=== PATIENT | female | born 1975 | race Caucasian/White ===

== ENCOUNTER 2025-02-18 16:36 | Emergency (ER) | payer BC, MEDICAID, SELFPAY ==
[2025-02-18 16:41] VITALS: BP 119/66; PULSE 73; RESP 16; TEMP 36.6; O2SAT 97; BMI 19.9
--- OUTSIDE RECORDS SUMMARY | 2025-02-18 17:16 | XMS_ITS | Patient Health Record ---
Author Organization [facility] Address [address] [place], [place] [address] Care Team Providers Care Neurologist Name Role Phone Alicia Barboza Primary Care Provider Allergies No Known Allergies Reason For Referral No Information Medications Medication SIG (Take, Route, Frequency, Duration) Notes Start Date End Date Status OLANZapine 15 MG Tablet 1 tablet Orally Once a day compass 10/09/2022 Active Mirtazapine 15 MG Tablet 1 tablet at bedtime Orally Once a day compass 10/09/2022 Active Triamcinolone Acetonide 0.1 % Ointment 1 application Externally Twice a day As needed for itching (do not use on face/neck) 10/09/2022 Active LaMICtal 150 MG Tablet 1 tablet Orally t wice a day Not-Taking Lexapro 20 MG Tablet 1 tablet Orally Onc e a day Not-Taking traZODone HCl 50 MG Tablet 1 tablet at bedtime as needed Orally Once a day Compass Active Promethazine HCl 25 MG Tablet 1 tablet as needed Orally every 8 hrs; Duration: 30 days As needed for nausea 10/09/2022 Active Docusate Sodium Acti ve Omeprazole 20 MG Capsule Delayed Release 1 capsule 30 minutes before morning meal Orally Once a day; Duration: 30 days 09/12/2022 Active Ondansetron HCl 4 MG Tablet 1 tablet Orally every 8 hours; Duration: 30 days As needed for nausea 09/12/2022 Active Hydrocodone Bitartrate Not-Taking Cyclobenzaprine HCl Not-Taking NexIUM Not-Taking Social History Tobacco Use: Social History Observation Description Date Details (start date - stop date) Never Smoker NA - NA Sex Assigned At : Social History Observation Description Sex Assigned At Female Social History Drugs/Alcohol: Social Info Question Answer Notes Alcohol Screen (Audit-C) Did you have a drink containing alcohol in the past year? No Points 0 Interpretation Negative Drugs Have you used drugs other than those for medical reasons in the past 12 months? No Tobacco Use: Social Info Question Answer Notes Tobacco Use/Smoking Are you a nonsmoker Problems Problem Type SNOMED Code ICD Code Onset Dates Problem Status W/U Status Risk Notes Problem Generalized anxiety disorder (41812257) Generalized anxiety disorder (F41.1) Active confirmed Problem Chronic pain (87180018) Other chronic pain (G89.29) Active confirmed Problem Vitamin D deficiency (49925045) Vitamin D deficiency (E55.9) Active confirmed Problem Arthritis (8974998) Arthritis (M19.90) Active confirmed Problem Migraine (33060483) Migraine (G43.909) Active confirmed Problem Asthma (667745622) Asthma (J45.909) Active conf irmed Problem Nausea (992536631) Chronic nause a (R11.0) Active confirmed Problem Schizophrenia (01967422) Schizophrenia (F20.9) Active confirmed Problem Movement disorder (55517007) Movement disorder (G25.9) Active confirmed Problem Gastroesophageal reflux disease (688937345) GERD without esophagitis (K21.9) Active confirmed Problem Tobacco use (303415339) Tobacco use disorder (F17.200) Active confirmed Problem Weight decreased (821865660) Weight loss, non-intentional (R63.4) Active confirmed Plan Of Treatment No Information Insurance Providers Payer Name Payer Address Payer Phone Subscriber Number Group Number Insured Name Patient Relationship to Insured Coverage Start Date Coverage End Date Ambetter [address] [place] [phone] [id number] Melissa Nation Self - patient is the insured [employer] [address] [address] [place] [address] [phone] [id number] Deanna montiel Melissa Self - patient is the insured [employer] [address] [place] [address] [id number] Melissa Nation Self - patient is the insured Medical (General) History Medical History History ICD Code Asthma J45.909 Other intervertebral disc degeneration, 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
[2025-02-18 18:23] VITALS: BP 125/53; PULSE 78; O2SAT 98
--- NOTE | 2025-02-18 18:55 | CTR_ITS ---
PROCEDURE INFORMATION: Exam: CT Abdomen And Pelvis With Contrast Exam date and time: 02/18/2025 07:29 PM Age: 49 years old Clinical indication: Abdominal pain; PT arrives via EMS for complaints of back pain. And RT flank pain; Additional info: R flank/rlq pain TECHNIQUE: Imaging protocol: Computed tomography of the abdomen and pelvis with contrast. Radiation optimization: All CT scans at this facility use at least one of these dose optimization techniques: automated exposure control; mA and/or kV adjustment per patient size (includes targeted exams where dose is matched to clinical indication); or iterative reconstruction. Contrast material: [id number]; Contrast volume: 65 ml; Contrast route: INTRAVENOUS (IV); COMPARISON: No relevant prior studies available. RADIATION DOSE METRICS: Total DLP (mGy-cm): 306.64 FINDINGS: Liver: Normal. No mass. Gallbladder and biliary ducts: Central intrahepatic biliary ductal dilatation. Prior cholecystectomy. Pancreas: Normal. No ductal dilation. Spleen: Normal. No splenomegaly. Adrenal glands: Normal. No mass. Kidneys and ureters: Symmetric enhancement of the kidneys and excretion. No hydronephrosis or hydroureter. Stomach and bowel: Anastomotic staple line in the left upper quadrant. Postsurgical changes of the gastroesophageal junction with hiatal hernia. No obstruction. Appendix: No evidence of appendicitis. Intraperitoneal space: No free air. Vasculature: Atherosclerotic vascular disease. Lymph nodes: Unremarkable. No enlarged lymph nodes. Urinary bladder: Partially distended bladder is unremarkable. Reproductive: Unremarkable as visualized. Bones/joints: Unremarkable. No acute fracture. Soft tissues: Unremarkable. CT/CT abdomen pelvis w con* [id number] IMPRESSION: 1. No renal, ureteral or bladder calculi. No hydronephrosis or hydroureter. 2. Nonspecific but nonobstructive bowel-gas pattern with moderate air distension of the ascending and sigmoid colon. 3. Mild intrahepatic biliary ductal dilatation. Status post cholecystectomy. 4. Postsurgical changes of the gastroesophageal junction with hiatal hernia.
[2025-02-18] MEDS: morphine 4 mg/mL SDV 1 mL IVP ×2 (19:04→20:53)
[2025-02-18 19:30] VITALS: BP 124/66; PULSE 80; O2SAT 95
[2025-02-18 19:37] LABS: Hematocrit 38.4 % (36-47); Hemoglobin 12.80 g/dL (11.27-16.99); Mean Corpuscular HGB Conc 33.3 g/dL (30-55); Mean Corpuscular Hemoglobin 33.9 pg (27-33); Mean Corpuscular Volume 101.6 fl (85-98); Nucleated Red Blood Cells % 0 %; Platelet Count 287 10^3/cmm (157-399); Red Blood Count 3.78 10^6/uL (3.85-5.65); White Blood Count 6.75 10^3/uL (3.29-11.43)
[2025-02-18] MEDS: iohexol 350 mg/mL 500 mL Btl (per mL) IV (19:46)
[2025-02-18 20:02] LABS: Alanine Aminotransferase 29 U/L (0-33); Albumin Level 3.9 g/dL (3.5-5.2); Alkaline Phosphatase 63 U/L (35-105); Anion Gap 15.2 (5-19); Aspartate Amino Transferase 24 U/L (0-32); Blood Urea Nitrogen 12 mg/dL (6-20); Calcium 8.4 mg/dL (8.5-10.5); Carbon Dioxide 24 mmol/L (22-29); Chloride 107 mmol/L (98-107); Creatinine Clr Calc Pharmacy 81.1155; Globulin 2.2 g/dL (1.3-4.6); Glucose 88 mg/dL (65-115); Lipase 50 U/L (13-60); Osmolality Calculated 293 mOsm/kg (285-295); Potassium 4.2 mmol/L (3.5-5.1); Sodium 142 mmol/L (136-145); Total Protein 6.1 g/dL (6.6-8.7)
[2025-02-18 20:05] VITALS: PULSE 83; O2SAT 95
[2025-02-18 20:14] LABS: Slide Review Slide Review Perform
[2025-02-18 20:20] LABS: Glucose Urine UA Negative (Normal); Nitrate Urine Negative (Negative)
[2025-02-18 20:25] LABS: Add Urine Microscopic? YES
--- NOTE | 2025-02-18 20:26 | W.ED.BACK ---
HPI - Back Pain/Injury General: Chief Complaint: Back Pain/Injury Stated Complaint: back pain/hypotensive Time Seen by Provider: 02/18/25 17:26 History of Present Illness: 49 yo F arrived by ambulance for severe right low back/right flank pain. EMS report notes pain ongoing for about a week; pt later states onset this afternoon around 1?2 pm, sudden and severe. Pain is constant, worsens with palpation over ?kidney? area, and there is tenderness in the right lower abdomen. Pt denies vomiting. Pt also reports right-sided leg discomfort involving hip, knee, and ankle, with difficulty ranging these joints. Initial report mentioned possible hypotension; EMS BP was 119/86. Pt appears uncomfortable; requests pain relief. Related Data Home Medications ?Medication ?Instructions ?Recorded ?Confirmed escitalopram oxalate 20 mg tablet 20 mg PO DAILY 02/08/25 02/12/25 lamotrigine 50 mg disintegrating 50 mg PO DAILY 02/08/25 02/12/25 tablet loperamide 2 mg capsule 2 mg PO Q6H PRN 02/08/25 02/12/25 quetiapine 50 mg tablet (Seroquel) 50 mg PO DAILY 02/08/25 02/12/25 Previous Rx's ?Medication ?Instructions ?Recorded diphenhydramine HCl 25 mg tablet 25 mg PO .q hs PRN allergy 02/08/25 symptoms #30 tabs loratadine 10 mg tablet 10 mg PO DAILY PRN allergy 02/08/25 symptoms #30 tabs cephalexin 500 mg capsule 500 mg PO BID 5 days #10 caps 02/12/25 ondansetron 4 mg disintegrating 4 mg PO Q8H 5 days #15 tabs 02/18/25 tablet oxycodone-acetaminophen 5 mg-325 1 tab PO Q8H PRN pain #20 tabs 25 mg tablet Allergies Allergy/AdvReac Type Severity Reaction Status Date / Time adhesive tape Allergy rash and Verified 02/12/25 12:14 burning [facility] ED PFSH: Medical History (Updated 02/18/25 @ 20:47 by Jorje Pratt DO) Seasonal allergies Social History Smoking and tobacco/nicotine status: current every day tobacco/nicotine user Physical Exam Const: COMMON NORMALS: no acute distress, patient oriented x3 and alert HENMT: COMMON NORMALS: normocephalic and atraumatic HEAD & SCALP: normocephalic and atraumatic Eye: COMMON NORMALS: Equal, round and reactive pupils present, EOMs intact bilaterally and no scleral icterus PUPIL: Yes Equal, round and reactive pupils present Resp: COMMON NORMALS: normal respiratory effort and No retractions Cardio: COMMON NORMALS: regular rate, regular rhythm and No murmurs present (Cardio) RATE: regular rate RHYTHM: regular rhythm GI: OTHER: Moderate pain with palpation of the right flank region and mild pain with right lower quadrant abdominal palpation. Normal bowel sounds. Neuro: COMMON NORMALS: patient oriented x3 SENSORIUM/ORIENTATION: Yes alert Skin: COMMON NORMALS: no rashes or lesions noted GENERAL SKIN EXAM: no rashes or lesions noted Course Vital Signs: Vital signs: Vital Signs Temperature 97.9 F 02/18/25 16:41 Pulse Rate 78 02/18/25 20:30 Respiratory Rate 16 02/18/25 16:41 Blood Pressure 118/76 02/18/25 20:30 Pulse Oximetry 95 02/18/25 20:30 Oxygen Delivery Me thod Room Air 02/18/25 20:05 MDM - Back Pain/Injury Medical Decision Making 49 yo F presents with sudden severe right flank/low back pain; EMS notes a week of symptoms, pt reports onset earlier today. Pain is constant, with tenderness over right flank and RLQ. No vomiting. Associated difficulty ranging right hip/knee/ankle. Vitals stable: BP 125/53, HR 78, RR 16, afebrile, SpO2 98% RA. PE shows reproducible right flank pain and RLQ tenderness; limited range in right lower extremity joints. Nephrolithiasis discussed as likely given abrupt severe flank pain indifferent to position and possible abdominal radiation. Appendicitis considered given RLQ tenderness. Back spasm mentioned as a possibility. CT scan does not show evidence of ureterolithiasis however does show some bowel distention without overt signs of blockage. She continues to have decreased but present bowel sounds and on reexamination states that she has not had a bowel movement since pain started but has passed a small amount of gas. She has underwent cholecystectomy in the past and I suspect she may have a partial bowel obstruction causing her pain. She has required multiple doses of morphine as well as a single dose of Toradol and pain is still 8 of 10. I spoke with both the hospitalist on-call and general surgeon, both of which feel the patient can be safely discharged home with oral pain and nausea medication given her CT findings and labs. I will prescribe her Zofran and Percocet and she will be discharged in stable condition knowing that she is always welcome back in the emergency department if the intervention is insufficient or if she has worsening symptoms before outpatient follow-up. Labs 02/18/25 19:14 02/18/25 19:14 Radiology Impressions Abdomen/Pelvis CT 02/18/25 18:55 IMPRESSION: 1. No renal, ureteral or bladder calculi. No hydronephrosis or hydroureter. 2. Nonspecific but nonobstructive bowel-gas pattern with moderate air distension of the ascending and sigmoid colon. 3. Mild intrahepatic biliary ductal dilatation. Status post cholecystectomy. 4. Postsurgical changes of the gastroesophageal junction with hiatal hernia. Laboratory Results WBC 6.75 10^3/uL (3.29-11.43) 02/18/25 19:14 RBC 3.78 10^6/uL (3.85-5.65) L 02/18/25 19:14 Hgb 12.80 g/dL (11.27-16.99) 02/18/25 19:14 Hct 38.4 % (36-47) 02/18/25 19:14 MCV 101.6 fl (85-98) H 02/18/25 19:14 MCH 33.9 pg (27-33) H 02/18/25 19:14 MCHC 33.3 g/dL (30-55) 02/18/25 19:14 RDW 12.8 % (12.1-15.1) 02/18/25 19:14 Plt Count 287 10^3/cmm (157-399) 02/18/25 19:14 MPV 9.3 fL (7.4-10.4) 02/18/25 19:14 Neut % (Auto) 41.8 % 02/18/25 19:14 Lymph % (Auto) 41.8 % 02/18/25 19:14 [place] % (Auto) 8.0 % 02/18/25 19:14 Eos % (Auto) 6.8 % 02/18/25 19:14 Baso % (Auto) 1.5 % 02/18/25 19:14 Neut # (Auto) 2.82 10^3/uL (1.8-7.7) 02/18/25 19:14 Lymph # (Auto) 2.8 10^3/uL (0.8-4.8) 02/18/25 19:14 Hamilton # (Auto) 0.5 10^3/uL (0.2-0.9) 02/18/25 19:14 Eos # (Auto) 0.5 10^3/uL (0.0-0.8) 02/18/25 19:14 Baso # (Auto) 0.1 10^3/uL (0.0-0.1) 02/18/25 19:14 Nucleated RBC % (auto) 0 % 02/18/25 19:14 Nucleated RBCs # 0.0 /100WBC 02/18/25 19:14 Sodium 142 mmol/L (136-145) 02/18/25 19:14 Potassium 4.2 mmol/L (3.5-5.1) 02/18/25 19:14 Chloride 107 mmol/L (98-107) 02/18/25 19:14 Carbon Dioxide 24 mmol/L (22-29) 02/18/25 19:14 Anion Gap 15.2 (5-19) 02/18/25 19:14 BUN 12 mg/dL (6-20) 02/18/25 19:14 Creatinine 0.6 mg/dL (0.5-0.9) 02/18/25 19:14 GFR Calculation 105.8 mL/min (90-130) 02/18/25 19:14 Glucose 88 mg/dL (65-115) 02/18/25 19:14 Calculated Osmolality 293 mOsm/kg (285-295) 02/18/25 19:14 Calcium 8.4 mg/dL (8.5-10.5) L 02/18/25 19:14 Total Bilirubin 0.2 mg/dL (0.15-1.2) 02/18/25 19:14 AST 24 U/L (0-32) 02/18/25 19:14 ALT 29 U/L (0-33) 02/18/25 19:14 Alkaline Phosphatase 63 U/L (35-105) 02/18/25 19:14 Total Protein 6.1 g/dL (6.6-8.7) L 02/18/25 19:14 Albumin 3.9 g/dL (3.5-5.2) 02/18/25 19:14 Globulin 2.2 g/dL (1.3-4.6) 02/18/25 19:14 Lipase 50 U/L (13-60) 02/18/25 19:14 Urine Color Yellow (Yellow) 02/18/25 20:02 Urine Appearance Clear (CLEAR) 02/18/25 20: Urine pH 5.5 (5-7) 02/18/25 20:02 Ur Specific [place] 1.056 (1.005-1.030) H 02/18/25 20: Urine Protein Negative (Negative) 02/18/25 20: Urine Glucose (UA) Negative (Normal) 02/18/25 20: Urine Ketones Trace (Negative) 02/18/25 20: Urine Blood Negative (Negative) 02/18/25 20: Urine Nitrate Negative (Negative) 02/18/25 20: Urine Bilirubin Negative (Negative) 02/18/25 20: Urine Urobilinogen 1.0 mg/dL (Negative) 02/18/25 20:02 Ur Leukocyte Esterase Negative (Negative) 02/18/25 20: Urine RBC 3-5 /hpf (0-2) 02/18/25 20:02 Urine WBC 0-5 /hpf (0-5) 02/18/25 20:02 Ur Squamous Epith Cells 0-5 /hpf (0-5) 02/18/25 20: Amorphous Sediment Not Reportable 02/18/25 20: Urine Bacteria None seen /hpf (NONE) 02/18/25 20: Hyaline Casts 0-4 /lpf H 02/18/25 20:02 All radiology interpretation(s) finalized by discharge Discharge Plan Discharge Patient Disposition: Home Clinical Impression: Partial bowel obstruction, Intractable abdominal pain Condition: Stable Prescriptions: New ondansetron 4 mg tablet,disintegrating 4 mg PO Q8H 5 Days Qty: 15 0RF oxycodone-acetaminophen 5-325 mg tablet 1 tab PO Q8H PRN (Reason: pain) Qty: 20 0RF No Action cephalexin 500 mg capsule 500 mg PO BID 5 Days Qty: 10 0RF lamotrigine 50 mg tablet,disintegrating 50 mg PO DAILY loperamide 2 mg capsule 2 mg PO Q6H PRN escitalopram oxalate 20 mg tablet 20 mg PO DAILY quetiapine [Seroquel] 50 mg tablet 50 mg PO DAILY diphenhydramine HCl 25 mg tablet 25 mg PO .q hs PRN (Reason: allergy symptoms) Qty: 30 0RF loratadine 10 mg tablet 10 mg PO DAILY PRN (Reason: allergy symptoms) Qty: 30 0RF Discharge Orders: Discharge ED (Routine); Ordered 02/18/25 Ordered By: Jorje Pratt Referrals: Margoth Koenig DO [Primary Care Provider, [facility]] Discharge Diet: Advance as tolerated Discharge Activity: Increase activity as tolerated Patient Instructions: Ileus (ED), Opioid Safety, Pain Management, Patient Portal & Silviano Instructions Activity Restrictions/Additional Instructions: Please take the prescribed nausea and pain medication and if this is not sufficient you are always welcome back in the emergency department. Both the on-call hospitalist and general surgeon feel it is safe you to go home and take medicine and gently advance your diet. For start with clear fluids and then progress as you can to a full, normal diet Print Language: Cook Islander Coding Level of Care Code ED Diesel Bus Mechanic for Amanda Ruiz
[2025-02-18 20:28] LABS: Specific Gravity, Urine 1.056 (1.005-1.030)
[2025-02-18 20:30] VITALS: BP 118/76; PULSE 78; O2SAT 95
[2025-02-18] MEDS: oxyCODONE-APAP 10-325 mg Tablet 1 TAB PO (21:17)
[2025-02-18 21:19] VITALS: BP 111/70; PULSE 79; O2SAT 96
== END 2025-02-18 21:20 | disposition home or self-care (01) ==
PROVIDERS: Emergency Provider Student in an Organized Health Care Education/Training Program; PCP Family Medicine
DX: K56.600 Partial intestinal obstruction, unspecified as to cause (principal); R10.9 Unspecified abdominal pain; Z72.0 Tobacco use
CPT/HCPCS: 36415; 74177; 80053; 81001; 83690; 85025; 96361; 96374; 96375; 96376; 99285; J1885; J2270; J7030; J9999

== ENCOUNTER 2025-02-19 19:48 | Observation (INO) | payer BC, MEDICAID, SELFPAY ==
--- OUTSIDE RECORDS SUMMARY | 2025-02-19 19:51 | XMS_ITS | Patient Health Record ---
Author Organization [facility] Address [address] [place], [place] [id number] Care Team Providers Care [employer] Name Role Phone Alicia Barboza Primary Care [...] Status Risk Notes Problem Generalized anxiety disorder (58024034) Generalized anxiety disorder (F41.1) Active confirmed Problem Chronic pain (52985209) Other chronic pain (G89.29) Active confirmed Problem Vitamin D deficiency (30621883) Vitamin D deficiency (E55.9) Active confirmed Problem Arthritis (9101525) Arthritis (M19.90) Active confirmed Problem Migraine (11759270) Migraine (G43.909) Active confirmed Problem Asthma (108186777) Asthma (J45.909) Active conf irmed Problem Nausea (504780884) Chronic nause a (R11.0) Active confirmed Problem Schizophrenia (30748442) Schizophrenia (F20.9) Active confirmed Problem Movement disorder (01920502) Movement disorder (G25.9) Active confirmed Problem Gastroesophageal reflux disease (819918701) GERD without esophagitis (K21.9) Active confirmed Problem Tobacco use (684774179) Tobacco use disorder (F17.200) Active confirmed Problem Weight decreased (406844189) Weight loss, non-intentional (R63.4) Active confirmed Plan Of Treatment No Information Insurance Providers Payer Name Payer Address Payer Phone Subscriber Number Group Number Insured Name Patient Relationship to Insured Coverage Start Date Coverage End Date Ambetter [address] [place] [phone] [id number] Melissa Nation Self - patient is the insured [employer] [address] [address] [place] [address] [phone] [id number] Deanna montiel Melissa Self - patient is the insured [employer] [address] [place] [address] [id number] Melissa Nation Self - patient is the [...]
[2025-02-19 19:58] VITALS: BP 88/55; PULSE 61; RESP 18; TEMP 36.8; O2SAT 96
[2025-02-19 20:14] LABS: Hematocrit 38.2 % (36-47); Hemoglobin 12.60 g/dL (11.27-16.99); Mean Corpuscular HGB Conc 33.0 g/dL (30-55); Mean Corpuscular Hemoglobin 33.2 pg (27-33); Mean Corpuscular Volume 100.8 fl (85-98); Nucleated Red Blood Cells % 0 %; Platelet Count 266 10^3/cmm (157-399); Red Blood Count 3.79 10^6/uL (3.85-5.65); White Blood Count 5.08 10^3/uL (3.29-11.43)
--- NOTE | 2025-02-19 20:25 | CTR_ITS ---
PROCEDURE INFORMATION: Exam: CT Abdomen And Pelvis With Contrast Exam date and time: 02/19/2025 9:15 PM Age: 49 years old Clinical indication: Abdominal pain; Generalized; Prior surgery; Surgery date: 6+ months; Surgery type: Gastric bypass. Gb. Bladder sling. Csection. C/O diffuse abd pain. TECHNIQUE: Imaging protocol: Computed tomography of the abdomen and pelvis with contrast. Radiation optimization: All CT scans at this facility use at least one of these dose optimization techniques: automated exposure control; mA and/or kV adjustment per patient size (includes targeted exams where dose is matched to clinical indication); or iterative reconstruction. Contrast material: OMNI 350; Contrast volume: 80 ml; Contrast route: INTRAVENOUS (IV); COMPARISON: CT abdomen pelvis w con* [id number] 02/18/2025 7:29 PM RADIATION DOSE METRICS: Total DLP (mGy-cm): 313.88 FINDINGS: Diaphragm: Small hiatus hernia present. Liver: See Gallbladder and biliary ducts finding. Gallbladder and biliary ducts: Patient status post cholecystectomy. Liver is enlarged measuring 18 cm longitudinally and demonstrates findings that could represent periportal edema correlate the screw inflammatory process confined to liver such as hepatitis or steerable finding Pancreas: Unremarkable. No ductal dilation. Spleen: Unremarkable. No splenomegaly. Adrenal glands: Normal. No mass. Kidneys and ureters: There is a 5 mm cyst upper pole left kidney. Smaller microcysts present right lower pole measures 3 mm. Stomach and bowel: Patient is status post gastric bypass there is mild constipation without obstruction. There are air-fluid levels within nondistended large and small bowel gastroenteritis could be a consideration Appendix: No evidence of appendicitis. Intraperitoneal space: There is no intra-abdominal or pelvic free air present. Small amount of free fluid demonstrated. Vasculature: Unremarkable. No abdominal aortic aneurysm. Lymph nodes: Unremarkable. No enlarged lymph nodes. Urinary bladder: Unremarkable as visualized. Reproductive: Unremarkable as visualized. Bones/joints: Unremarkable. No acute fracture. Soft tissues: Unremarkable. CT/CT abdomen pelvis w con* [id number] IMPRESSION: 1. Findings could represent gastroenteritis no obstruction 2. Mild hepatomegaly with what could represent periportal edema correlate to exclude inflammatory process confined to the liver such as hepatitis questionable finding 3. Post cholecystectomy status. 4. Findings compatible with renal cysts. COMMENTS: Consistent with the [place] [employer]'s Incidental Findings Committee white paper (J Am Zaki Radiol 2018): Any incidental renal lesion less than 1 cm or classified as too small to characterize, or any incidental cystic renal lesion characterized as simple-appearing, is likely benign. No follow-up imaging is recommended for these lesions per consensus recommendations based on imaging criteria.
--- NOTE | 2025-02-19 20:26 | W.ED.ABDPA2 ---
HPI - Abdominal Pain General: Chief Complaint: Abdominal Pain Stated Complaint: ABD PAIN Time Seen by Provider: 02/19/25 20:22 Source: patient and EMS Mode of arrival: EMS Limitations: no limitations History of Present Illness: 49-year-old female who states that she may have abdominal pain, constipation over the last 3 days. She seen her yesterday and diagnosed partial small bowel obstruction. She is continue to have some pain and nausea she denies any vomiting today states she has had some watery diarrhea denies any fevers denies any worse improved factors rates her pain a 9 out of 10 currently. Related Data Home Medications ?Medication ?Instructions ?Recorded ?Confirmed escitalopram oxalate 20 mg tablet 20 mg PO DAILY 02/08/25 02/12/25 lamotrigine 50 mg disintegrating 50 mg PO DAILY 02/08/25 02/12/25 tablet loperamide 2 mg capsule 2 mg PO Q6H PRN 02/08/25 02/12/25 quetiapine 50 mg tablet (Seroquel) 50 mg PO DAILY 02/08/25 02/12/25 Previous Rx's ?Medication ?Instructions ?Recorded diphenhydramine HCl 25 mg tablet 25 mg PO .q hs PRN allergy 02/08/25 symptoms #30 tabs loratadine 10 mg tablet 10 mg PO DAILY PRN allergy 02/08/25 symptoms #30 tabs cephalexin 500 mg capsule 500 mg PO BID 5 days #10 caps 02/12/25 ondansetron 4 mg disintegrating 4 mg PO Q8H 5 days #15 tabs 02/18/25 tablet oxycodone-acetaminophen 5 mg-325 1 tab PO Q8H PRN pain #20 tabs 1016/25 mg tablet Allergies Allergy/AdvReac Type Severity Reaction Status Date / Time adhesive tape Allergy rash and Verified 02/12/25 12:14 burning Review of Systems GI: Reports: abdominal pain PFS ED PFSH: Medical History Seasonal allergies Social History Smoking and tobacco/nicotine status: current every day tobacco/nicotine user Physical Exam Const: COMMON NORMALS: no acute distress, patient oriented x3 and healthy appearing HENMT: COMMON NORMALS: normocephalic and atraumatic HEAD & SCALP: normocephalic and atraumatic Eye: COMMON NORMALS: conjunctivae normal CONJUNCTIVA: Yes conjunctivae normal Neck/C-Spine: COMMON NORMALS: full ROM and supple Chest: COMMONS NORMALS: normal inspection of the chest Resp: COMMON NORMALS: normal respiratory effort, No retractions, No use of accessory muscles and clear to auscultation bilaterally AUSCULTATION: clear to auscultation bilaterally Cardio: COMMON NORMALS: regular rate, regular rhythm and No murmurs present (Cardio) RATE: regular rate RHYTHM: regular rhythm GI: COMMON NORMALS: Normal to inspection, nondistended, normoactive bowel sounds present, Soft to palpation and no masses PALPATION: Yes Soft to palpation OTHER: diffsuse mildtenderness Extremity: COMMON NORMALS: normal to inspection and full ROM Neuro: COMMON NORMALS: patient oriented x3, moves all extremities and no focal motor deficits Psych: COMMON NORMALS: mental status grossly normal, Normal thought process present and cooperative THOUGHT PROCESS: Normal thought process present Skin: COMMON NORMALS: no rashes or lesions noted and no wounds GENERAL SKIN EXAM: no rashes or lesions noted Course Vital Signs: Vital signs: Vital Signs Temperature 98.2 F 02/19/25 19:58 Pulse Rate 68 02/19/25 22:00 Respiratory Rate 16 02/19/25 22:00 Blood Pressure 116/66 02/19/25 23:33 Pulse Oximetry 92 02/19/25 23:33 Oxygen Delivery Me thod Room Air 02/19/25 23:33 MDM - Abdominal Pain Medical Decision Making Patient presents with abdominal pain. Differential includes small bowel obstruction appendicitis diverticulitis. CT showed no findings of the above. She did have an elevated lipase likely Pancreatitis causing her vomiting abdominal pain. She feels much improved after fluids morphine and Zofran. I did go over her lab results and CT with her and will admit her at this time for pain control I spoke to hospitalist and will admit. Medical Records I reviewed the patient's medical records. Lab Data I reviewed the patient's lab results. 02/19/25 20:04 02/19/25 20:04 Labs/Radiology: Radiology Impressions Abdomen/Pelvis CT 02/19/25 20:25 IMPRESSION: 1. Findings could represent gastroenteritis no obstruction 2. Mild hepatomegaly with what could represent periportal edema correlate to exclude inflammatory process confined to the liver such as hepatitis questionable finding 3. Post cholecystectomy status. 4. Findings compatible with renal cysts. COMMENTS: Consistent with the [employer]'s Incidental Findings Committee white paper (J Am Zaki Radiol 2018): Any incidental renal lesion less than 1 cm or classified as too small to characterize, or any incidental cystic renal lesion characterized as simple-appearing, is likely benign. No follow-up imaging is recommended for these lesions per consensus recommendations based on imaging criteria. Laboratory Results WBC 5.08 10^3/uL (3.29-11.43) 02/19/25 20:04 RBC 3.79 10^6/uL (3.85-5.65) L 02/19/25 20:04 Hgb 12.60 g/dL (11.27-16.99) 02/19/25 20:04 Hct 38.2 % (36-47) 02/19/25 20:04 MCV 100.8 fl (85-98) H 02/19/25 20:04 MCH 33.2 pg (27-33) H 02/19/25 20:04 MCHC 33.0 g/dL (30-55) 02/19/25 20:04 RDW 12.8 % (12.1-15.1) 02/19/25 20:04 Plt Count 266 10^3/cmm (157-399) 02/19/25 20:04 MPV 9.5 fL (7.4-10.4) 02/19/25 20:04 Neut % (Auto) 43.6 % 02/19/25 20:04 Lymph % (Auto) 38.8 % 02/19/25 20:04 Schleicher % (Auto) 7.3 % 02/19/25 20:04 Eos % (Auto) 8.7 % 02/19/25 20:04 Baso % (Auto) 1.4 % 02/19/25 20:04 Neut # (Auto) 2.22 10^3/uL (1.8-7.7) 02/19/25 20:04 Lymph # (Auto) 2.0 10^3/uL (0.8-4.8) 02/19/25 20:04 Schleicher # (Auto) 0.4 10^3/uL (0.2-0.9) 02/19/25 20:04 Eos # (Auto) 0.4 10^3/uL (0.0-0.8) 02/19/25 20:04 Baso # (Auto) 0.1 10^3/uL (0.0-0.1) 02/19/25 20:04 Nucleated RBC % (auto) 0 % 02/19/25 20:04 Nucleated RBCs # 0.0 /100WBC 02/19/25 20:04 Sodium 138 mmol/L (136-145) 02/19/25 20:04 Potassium 4.2 mmol/L (3.5-5.1) 02/19/25 20:04 Chloride 104 mmol/L (98-107) 02/19/25 20:04 Carbon Dioxide 27 mmol/L (22-29) 02/19/25 20:04 Anion Gap 11.2 (5-19) 02/19/25 20:04 BUN 8 mg/dL (6-20) 02/19/25 20:04 Creatinine 0.5 mg/dL (0.5-0.9) 02/19/25 20:04 GFR Calculation 130.6 mL/min (90-130) H 02/19/25 20:04 Glucose 89 mg/dL (65-115) 02/19/25 20:04 Calculated Osmolality 284 mOsm/kg (285-295) L 02/19/25 20:04 Lactic Acid 0.4 mmol/L (0.5-2.2) L 02/19/25 20:04 Calcium 8.5 mg/dL (8.5-10.5) 02/19/25 20:04 Phosphorus 4.2 mg/dL (2.5-4.5) 02/19/25 20:04 Magnesium 2.5 mg/dL (1.7-2.3) H 02/19/25 20:04 Total Bilirubin 0.3 mg/dL (0.15-1.2) 02/19/25 20:04 AST 193 U/L (0-32) H 02/19/25 20:04 ALT 276 U/L (0-33) H 02/19/25 20:04 Alkaline Phosphatase 108 U/L (35-105) H 02/19/25 20:04 Total Protein 6.4 g/dL (6.6-8.7) L 02/19/25 20:04 Albumin 4.1 g/dL (3.5-5.2) 02/19/25 20:04 Globulin 2.3 g/dL (1.3-4.6) 02/19/25 20:04 Triglycerides 59 mg/dL (0-150) 02/19/25 20:04 Cholesterol 136 mg/dL (0-200) 02/19/25 20:04 LDL Cholesterol, Calc 60 mg/dL (50-129) 02/19/25 20:04 HDL Cholesterol 64 mg/dL (60-100) 02/19/25 20:04 LDL/HDL Ratio 0.94 RATIO (0.00-3.22) 02/19/25 20:04 Cholesterol/HDL Ratio 2.13 mg/dL (0.0-4.40) 02/19/25 20:04 Lipase 1051 U/L (13-60) H 02/19/25 20:04 All radiology interpretation(s) finalized by discharge Discharge Plan Discharge Patient Disposition: Admitted As Inpatient Admit Provider: Sheng Christina Clinical Impression: Pancreatitis Condition: Stable Coding Level of Care Code ED Photoengraver Apprentice for Amanda Ruiz
[2025-02-19] MEDS: ondansetron 2 mg/ML SDV 2 mL 4 MG IVP (20:29)
[2025-02-19 20:42] VITALS: RESP 16; O2SAT 96
[2025-02-19] MEDS: morphine 4 mg/mL SDV 1 mL IVP (20:42)
[2025-02-19 20:43] VITALS: BP 111/66; PULSE 56; RESP 16; O2SAT 95
[2025-02-19 20:53] LABS: Lactic Sepsis W/Reflex 0.4 mmol/L (0.5-2.2)
[2025-02-19 20:54] LABS: Alanine Aminotransferase 276 U/L (0-33); Albumin Level 4.1 g/dL (3.5-5.2); Alkaline Phosphatase 108 U/L (35-105); Anion Gap 11.2 (5-19); Aspartate Amino Transferase 193 U/L (0-32); Blood Urea Nitrogen 8 mg/dL (6-20); Calcium 8.5 mg/dL (8.5-10.5); Carbon Dioxide 27 mmol/L (22-29); Chloride 104 mmol/L (98-107); Creatinine Clr Calc Pharmacy 96.9536; Globulin 2.3 g/dL (1.3-4.6); Glucose 89 mg/dL (65-115); Osmolality Calculated 284 mOsm/kg (285-295); Potassium 4.2 mmol/L (3.5-5.1); Sodium 138 mmol/L (136-145); Total Protein 6.4 g/dL (6.6-8.7)
[2025-02-19 21:15] LABS: Lipase 1051 U/L (13-60)
[2025-02-19] MEDS: iohexol 350 mg/mL 500 mL Btl (per mL) IV (21:18)
[2025-02-19 22:00] VITALS: BP 117/67; PULSE 68; RESP 16; O2SAT 94
[2025-02-19 22:33] LABS: Cholesterol 136 mg/dL (0-200); HDL Cholesterol 64 mg/dL (60-100); Magnesium 2.5 mg/dL (1.7-2.3); Triglycerides 59 mg/dL (0-150)
[2025-02-19] MEDS: HYDROcodone-acetaminophen 5-325 mg Tablet 1 TAB PO (22:35)
[2025-02-19 23:33] VITALS: BP 116/66; O2SAT 92
[2025-02-20] VITALS (7 sets, daily range): BP systolic 88–112; BP diastolic 43–73; PULSE 57–76; RESP 16–18; TEMP 36.4–36.9; O2SAT 90–97
[2025-02-20] MEDS: pantoprazole 40 mg SDV IVP (00:17)
--- NOTE | 2025-02-20 01:40 | PM.HP ---
Providers/Chief Complaint Admitting Physician: Sheng Christina MD Primary Care Provider: Margoth Koenig DO Chief Complaint: ABD PAIN History of Present Illness as per the previous notes and the patient: Melissa Le is a 49 year old female with PMH of seasonal allergies, and taking mood mood disorder medications but no reported diagnoses in the chart, current active smoker and smokes every day since more than 10 to 20 years half a pack per day trying to quit came with abdominal pain associate with nausea and vomiting able to pass gas from yesterday and CT scan showed partial small bowel obstruction. The patient was sent home after discussion with surgery as she was passing gas with pain medication. The patient pain did not subside she came back with a similar complaints. She also reported having mild fever and some chills. And abdominal pain radiates from her periumbilical region to the back. It feels pressure-like and squeezing pain. She has past medical history of cholecystectomy, history of section. She does not drink alcohol or any other drugs or any herbal medications. No recent new medications or supplement meds. she did not report any lower leg swelling, shortness of breath, chest pain chest pressure orthopnea or PND. Review of Systems General: Reports: 10 or more systems reviewed and unremarkable except in HPI and below Medications/Allergies Home Medications ?Medication ?Instructions ?Recorded ?Confirmed ?Last Taken ?Type diphenhydramine HCl 25 mg tablet 25 mg PO .q hs PRN allergy 02/08/25 02/12/25 Unknown Rx symptoms #30 tabs escitalopram oxalate 20 mg tablet 20 mg PO DAILY 02/08/25 02/12/25 Unknown History lamotrigine 50 mg disintegrating 50 mg PO DAILY 02/08/25 02/12/25 Unknown History tablet loperamide 2 mg capsule 2 mg PO Q6H PRN 02/08/25 02/12/25 Unknown History loratadine 10 mg tablet 10 mg PO DAILY PRN allergy 02/08/25 02/12/25 Unknown Rx symptoms #30 tabs quetiapine 50 mg tablet (Seroquel) 50 mg PO DAILY 02/08/25 02/12/25 Unknown History cephalexin 500 mg capsule 500 mg PO BID 5 days #10 caps 02/12/25 02/12/25 Unknown Rx ondansetron 4 mg disintegrating 4 mg PO Q8H 5 days #15 tabs 02/18/25 Unknown Rx tablet oxycodone-acetaminophen 5 mg-325 1 tab PO Q8H PRN pain #20 tabs 02/18/25 Unknown Rx mg tablet Allergies Allergy/AdvReac Type Severity Reaction Status Date / Time adhesive tape Allergy rash and Verified 02/12/25 12:14 burning PFSH Acute PFSH: Medical History (Updated 02/20/25 @ 01:46 by Sheng Christina MD) Seasonal allergies Social History Smoking and tobacco/nicotine status: current every day tobacco/nicotine user Vitals/I&O/Wt Last Vital Signs Temp 97.5 F L 02/20/25 00:07 Pulse 76 02/20/25 00:07 Resp 16 02/19/25 22:00 BP 88/50 02/20/25 00:55 Pulse Ox 90 02/20/25 00:07 O2 Del Method Nasal Cannula 02/20/25 00:43 Weight last 48 hrs Weight 49.895 kg Weight 45.813 kg Physical Exam Narrative: General: Alert and oriented, lying comfortably without any distress on room air able to complete and full sentences HEENT: Normocephalic, atraumatic, grossly unremarkable exam Cardio: normal rate rhythm, normal S1-S2 without any murmurs, rubs, or gallops and JVD normal Respiratory: normal vascular breathing on auscultation without any wheezes, stridor, rhonchi GI: Abdomen tender and mildly distended with rigidity on deep palpation around the periumbilical region, normoactive bowel sounds present all 4 quadrants, Neuro: intact cranial nerves motor and sensory and cerebellar/coordination function without any focal neurological deficit Behavior: Appropriate and cooperative Extremities: Adequate palpable pulses, no edema or cyanosis observed Skin: grossly unremarkable exam Data 02/19/25 20:04 02/19/25 20:04 A&P Assessment and plan 1. Pancreatitis: - Patient able to take fluids therefore to continue with clear fluids - Patient is fluid responsive to give bolus of fluid and to start 200 mL Ringer lactate - Zofran for nausea and vomiting - Adequate pain control - Monitor electrolytes and correction accordingly - Monitor renal functions - Keep MAP above 65 2. Transaminitis: Patient having transaminitis and CT scan reported fatty liver with mild inflammation. Could be related to acute pancreatitis, however no ductal dilation noted in the CT scan Called [facility] tissue technician on-call for further review and discussion to need any intervention, the bilirubin is not raised therefore reevaluated and is likely related to acute pancreatitis, however if the patient condition changes and further elevation of transaminitis or bilirubin is reported then to rediscuss and for further intervention if needed as per clinical assessment to proceed Monitor liver functions, if rising consider ultrasound of liver/hepatobiliary system Monitor bilirubin 3. Intractable abdominal pain: Patient is able to pass gas, monitor for any abdominal distention Considering partial bowel obstruction in the previous CAT scan, if it is worsening with distention or rigidity to consider surgery input for further management 4. Partial bowel obstruction: As mentioned above 5. Seasonal allergies: Currently stable to monitor PDMP PDMP Reviewed: Not Reviewed Attestations Medical Necessity Statement*: [facility]'s hospital stay will require greater than 2 midnights for acute pancreatitis Time Spent in Patient Care: 16 - 35 minutes (>than 50% of time spent in counselling and/or direct pt care on unit). Other Attestations: Patient condition has been discussed at length with the patient/family, I have independently reviewed the chart labs imaging/diagnostics/EKG. the goals of care and code status with the patient/family/NOK/legal hospital sales representative, and documented accordingly. The patient/family has been informed about the current condition and further plan of care. Agreed with the plan of care and understood without any language barrier. Every effort was made to ensure accuracy of loom fixer helper. Any obvious errors or omissions should be clarified with the author of the document. Coding Level of Care Code 35208 Diagnoses Pancreatitis K85.90 Transaminitis R74.01 Intractable abdominal pain R10.9 Partial bowel obstruction K56.600 Seasonal allergies J30.2
[2025-02-20] MEDS: morphine 4 mg/mL SDV 1 mL 2 MG IVP (03:54)
[2025-02-20 05:03] LABS: Hematocrit 35.9 % (36-47); Hemoglobin 11.70 g/dL (11.27-16.99); Mean Corpuscular HGB Conc 32.6 g/dL (30-55); Mean Corpuscular Hemoglobin 32.9 pg (27-33); Mean Corpuscular Volume 100.8 fl (85-98); Nucleated Red Blood Cells % 0 %; Platelet Count 207 10^3/cmm (157-399); Red Blood Count 3.56 10^6/uL (3.85-5.65); White Blood Count 4.48 10^3/uL (3.29-11.43)
[2025-02-20 05:22] LABS: Alanine Aminotransferase 264 U/L (0-33); Albumin Level 3.6 g/dL (3.5-5.2); Alkaline Phosphatase 94 U/L (35-105); Anion Gap 10.2 (5-19); Aspartate Amino Transferase 189 U/L (0-32); Blood Urea Nitrogen 6 mg/dL (6-20); Calcium 8.0 mg/dL (8.5-10.5); Carbon Dioxide 26 mmol/L (22-29); Chloride 107 mmol/L (98-107); Globulin 1.6 g/dL (1.3-4.6); Glucose 93 mg/dL (65-115); Osmolality Calculated 285 mOsm/kg (285-295); Potassium 4.2 mmol/L (3.5-5.1); Sodium 139 mmol/L (136-145); Total Protein 5.2 g/dL (6.6-8.7)
[2025-02-20 05:24] LABS: Creatinine Clr Calc Pharmacy 125.5291
--- NOTE | 2025-02-20 08:00 | PC.NURSE ---
In room to round on patient. Patient states, What do you do for smoking around here? Explained that it is a smoke free campus and that I could ask the doctor for a Nicotine patch or Gum. Patient states, I am allergic to the patch and I don't' chew gum. Explained to the patient that I did not have anything else I could offer. Patient verbalized understanding.
[2025-02-20] MEDS: HYDROcodone-acetaminophen 5-325 mg Tablet 1 TAB PO (08:49)
--- NOTE | 2025-02-20 09:15 | PC.NURSE ---
Patient ambulated to the desk and asked for regular food and if she could have something for pain. Explained to the patient that I would bring her something in for pain but that they like to give the stomach rest and would not want to increase her diet just yet. Patient verbalized understanding.
--- NOTE | 2025-02-20 09:55 | PC.NURSE ---
In room to round on patient. Patient was noted at this time to be Vaping under a cover while laying in her bed. Reminded that this is a smoke free facility. Patient unwilling to give up her Vape. Patient placed it back in her purse and states, Do you know when I can go home? Updated patient I would call the doctor to see when she will round today. Patient verbalized understanding
--- NOTE | 2025-02-20 10:30 | PC.NURSE ---
Patient gave her Vape to Profile Saw Setup Operator composition professor Leah. Vape was placed in a bag and locked up.
--- NOTE | 2025-02-20 11:00 | PC.NURSE ---
Patient ambulated to the desk and states, When can I go home. I want to smoke and eat? Explained to patient that she need to wait for the doctor and see what she wants to do. Informed patient that I would text the doctor and see when she thought she would be rounding. Patient verbalized understanding.
--- NOTE | 2025-02-20 11:26 | PC.CHAP ---
Pastoral Care Encounter/Spiritual Assessment Type of Contact [] Declined new car inspector visit [] Patient/Family/Request visit [] Outpatient visit [] Follow-up visit [] Physician referral [] Code/Alert [X] Routine visit [] Staff referral [] Actively dying [] Patient sleeping [] Family support [] [] Out of room [] Palliative care [] [] Receiving care in room [] Pre-surgical visit [] Trauma [] Long length of stay [] ICU visit [] Other: Relational/Emotional Strength [X] Patient feels connected with others/family/visitors/staff [X] Distress [] Loneliness/isolation [] Abandonment Spirituality of Patient [X] Person of Phyllis [X] Attends Druze of their Phyllis [X] Believes in Prayer [X] Reads Bible or Congregation materials [] There are Spiritual issues to be addressed Mural Artist Interventions [X] Prayer [X] Active listening [X] Non-anxious presence [] Spiritual/emotional support [] Crisis/trauma care [] Spiritual counseling [] Bereavement support [] Provided bereavement packet [] Provided Bible/devotional materials [] Provided toy/stuffed animal, coloring book to patient or family member [] Provided Communion [] Anointing/Tangent [] Salvation [] Completed spiritual assessment [] Other: Impact on Illness or Injury [] Angry [] Fearful [X] Anxious [] Often cries [] Exhaustion [] Unable to work [] Unable to attend lutheran [] Unable to walk/stand [] Unable to read [] Unable to drive [] Unable to eat/drink [] Unable to sleep [] Unable to be with family [] Patient intubated [] Other: Summary Low Spirits, Asked about Yarsanism Svc Tomorrow if she was Here. Told her didn't then there was one. Asked if Stacy and i would come back to bible study with her Time spent with patient 20. Min
--- NOTE | 2025-02-20 12:00 | PC.NURSE ---
updated patient that the doctor would be here as soon as she can, she is currently in the ICU. Patient verbalized understanding.
--- NOTE | 2025-02-20 12:30 | PC.NURSE ---
Patient ambulated to the desk and stated, I have already called my ride and I want to sign out. Educated the patient that she should rest in her room and wait for the doctor. Informed her that the doctor might discharge her if she feel like she is better. Patient stated, No I am leaving. Patient ambulated back to her room.
--- NOTE | 2025-02-20 12:54 | PC.NURSE ---
Addendum entered by Dalila Smith RN 02/20/25 18:30: Patient is A&Ox3. Respirations even and non-labored on room air. Original Note: In room to remove patient's IV at this time. Asked patient if she would be willing to stay and see the doctor. Patient stated, NO I am ready to eat and smoke. Explained to patient that the pain could get worse, she was at risk for increased infection and possibly . Patient signed the AMA paper. IV removed intact. Patient tolerated well. Patient was given her Vape, 4 cigarette lighters and her cigarette's back. Patient wheel chaired to the door at her request.
--- NOTE | 2025-02-20 17:12 | PM.DCS ---
Discharge Providers Date of Admission: 02/19/25 21:52 Date of Discharge: February 20, 2025 Attending Provider at Admission: Sheng Christina MD Attending Provider at Discharge: Krystyna Gurrola MD Primary Care Provider: Margoth Koenig DO Diagnoses at Discharge Discharge Diagnosis 1. Pancreatitis: 2. Transaminitis: 3. Intractable abdominal pain: 4. Partial bowel obstruction: 5. Seasonal allergies: Reason for Visit Reason for Visit: ABD PAIN Hospital Course Hospital Course as per the previous notes and the patient: Melissa Le is a 49 year old female with PMH of seasonal allergies, and taking mood mood disorder medications but no reported diagnoses in the chart, current active smoker and smokes every day since more than 10 to 20 years half a pack per day trying to quit came with abdominal pain associate with nausea and vomiting able to pass gas from yesterday and CT scan showed partial small bowel obstruction. The patient was sent home after discussion with surgery as she was passing gas with pain medication. The patient pain did not subside she came back with a similar complaints. She also reported having mild fever and some chills. And abdominal pain radiates from her periumbilical region to the back. It feels pressure-like and squeezing pain. She has past medical history of cholecystectomy, history of section. She does not drink alcohol or any other drugs or any herbal medications. No recent new medications or supplement meds. she did not report any lower leg swelling, shortness of breath, chest pain chest pressure orthopnea or PND. Patient was admitted this morning by another colleague and I am patient getting to the medical floor the staff reported that he wanted to go out and smoke. He wanted to go have some drink. And he was also caught in the room smoking cigarettes with oxygen on and the staff nurse turned off the oxygen patient left AGAINST MEDICAL ADVICE that he does not want to stay. Patient left even before they have a chance to call any provider. As I was doing my round on the floor it was then related to me that the patient left AGAINST MEDICAL ADVICE. Physical Exam Narrative: Patient left AGAINST MEDICAL ADVICE Discharge Data Studies Completed and Pending Completed Studies During Hospitalization Category Date Time Status CT abdomen pelvis w con* [id number] Stat Cat Scan 02/19/25 20:25 Completed Radiology Impressions Abdomen/Pelvis CT 02/19/25 20:25 IMPRESSION: 1. Findings could represent gastroenteritis no obstruction 2. Mild hepatomegaly with what could represent periportal edema correlate to exclude inflammatory process confined to the liver such as hepatitis questionable finding 3. Post cholecystectomy status. 4. Findings compatible with renal cysts. COMMENTS: Consistent with the [employer]'s Incidental Findings Committee white paper (J Am Zaki Radiol 2018): Any incidental renal lesion less than 1 cm or classified as too small to characterize, or any incidental cystic renal lesion characterized as simple-appearing, is likely benign. No follow-up imaging is recommended for these lesions per consensus recommendations based on imaging criteria. ADDENDUM: 02/19/25 2341 The pancreas appears unremarkable there are no peripancreatic inflammatory changes present to suggest imaging features of pancreatitis. There is no discrete pancreatic pancreatic lesion present. Laboratory Results WBC 4.48 10^3/uL (3.29-11.43) 02/20/25 04:27 RBC 3.56 10^6/uL (3.85-5.65) L 02/20/25 04:27 Hgb 11.70 g/dL (11.27-16.99) 02/20/25 04:27 Hct 35.9 % (36-47) L 02/20/25 04:27 MCV 100.8 fl (85-98) H 02/20/25 04:27 MCH 32.9 pg (27-33) 02/20/25 04:27 MCHC 32.6 g/dL (30-55) 02/20/25 04:27 RDW 12.4 % (12.1-15.1) 02/20/25 04:27 Plt Count 207 10^3/cmm (157-399) 02/20/25 04:27 MPV 10.2 fL (7.4-10.4) 02/20/25 04:27 Neut % (Auto) 36.4 % 02/20/25 04:27 Lymph % (Auto) 48.4 % 02/20/25 04:27 Wright % (Auto) 6.5 % 02/20/25 04:27 Eos % (Auto) 7.4 % 02/20/25 04:27 Baso % (Auto) 1.1 % 02/20/25 04:27 Neut # (Auto) 1.63 10^3/uL (1.8-7.7) L 02/20/25 04:27 Lymph # (Auto) 2.2 10^3/uL (0.8-4.8) 02/20/25 04:27 Wright # (Auto) 0.3 10^3/uL (0.2-0.9) 02/20/25 04:27 Eos # (Auto) 0.3 10^3/uL (0.0-0.8) 02/20/25 04:27 Baso # (Auto) 0.1 10^3/uL (0.0-0.1) 02/20/25 04:27 Nucleated RBC % (auto) 0 % 02/20/25 04:27 Nucleated RBCs # 0.0 /100WBC 02/20/25 04:27 Sodium 139 mmol/L (136-145) 02/20/25 04:27 Potassium 4.2 mmol/L (3.5-5.1) 02/20/25 04:27 Chloride 107 mmol/L (98-107) 02/20/25 04:27 Carbon Dioxide 26 mmol/L (22-29) 02/20/25 04:27 Anion Gap 10.2 (5-19) 02/20/25 04:27 BUN 6 mg/dL (6-20) 02/20/25 04:27 Creatinine 0.4 mg/dL (0.5-0.9) L 02/20/25 04:27 GFR Calculation 169.0 mL/min (90-130) H 02/20/25 04:27 Glucose 93 mg/dL (65-115) 02/20/25 04:27 Calculated Osmolality 285 mOsm/kg (285-295) 02/20/25 04:27 Lactic Acid 0.4 mmol/L (0.5-2.2) L 02/19/25 20:04 Calcium 8.0 mg/dL (8.5-10.5) L 02/20/25 04:27 Phosphorus 4.2 mg/dL (2.5-4.5) 02/19/25 20:04 Magnesium 2.5 mg/dL (1.7-2.3) H 02/19/25 20:04 Total Bilirubin 0.4 mg/dL (0.15-1.2) 02/20/25 04:27 AST 189 U/L (0-32) H 02/20/25 04:27 ALT 264 U/L (0-33) H 02/20/25 04:27 Alkaline Phosphatase 94 U/L (35-105) 02/20/25 04:27 Total Protein 5.2 g/dL (6.6-8.7) L 02/20/25 04:27 Albumin 3.6 g/dL (3.5-5.2) 02/20/25 04:27 Globulin 1.6 g/dL (1.3-4.6) 02/20/25 04:27 Triglycerides 59 mg/dL (0-150) 02/19/25 20:04 Cholesterol 136 mg/dL (0-200) 02/19/25 20:04 LDL Cholesterol, Calc 60 mg/dL (50-129) 02/19/25 20:04 HDL Cholesterol 64 mg/dL (60-100) 02/19/25 20:04 LDL/HDL Ratio 0.94 RATIO (0.00-3.22) 02/19/25 20:04 Cholesterol/HDL Ratio 2.13 mg/dL (0.0-4.40) 02/19/25 20:04 Lipase 1051 U/L (13-60) H 02/19/25 20:04 Vitals Last Vital Signs Temp 98.4 F 02/20/25 11:23 Pulse 57 L 02/20/25 11:23 Resp 16 02/20/25 11:23 BP 100/65 02/20/25 11:23 Pulse Ox 93 02/20/25 11:23 O2 Del Method Room Air 02/20/25 11:23 O2 Flow Rate 1 02/20/25 07:56 Discharge Plan Discharge Patient Disposition: Left Against Medical Advice Condition: Stable Prescriptions: No Action loperamide 2 mg capsule 2 mg PO Q6H PRN (Reason: Diarrhea) escitalopram oxalate 20 mg tablet 20 mg PO DAILY diphenhydramine HCl 25 mg tablet 25 mg PO .q hs PRN (Reason: allergy symptoms) Qty: 30 0RF loratadine 10 mg tablet 10 mg PO DAILY PRN (Reason: allergy symptoms) Qty: 30 0RF oxycodone-acetaminophen 5-325 mg tablet 1 tab PO Q8H PRN (Reason: pain) Qty: 20 0RF quetiapine 100 mg tablet 100 mg PO BEDTIME lamotrigine 25 mg tablet 50 mg PO QAM ondansetron 4 mg tablet,disintegrating 4 mg PO Q8H Referrals: Margoth Koenig DO [Primary Care Provider, [facility]] Discharge Attestations Time Spent in Discharge Care*: other Quality Metrics Clinical Quality Measures [ No reported AMI, CVA or VTE this stay] Coding Level of Care Code Acute Code for Chg Fwd Diagnoses Pancreatitis K85.90 Transaminitis R74.01 Intractable abdominal pain R10.9 Partial bowel obstruction K56.600 Seasonal allergies J30.2
--- OUTSIDE RECORDS SUMMARY | 2025-02-23 15:47 | XMS_ITS | Patient Health Record ---
Author Organization [facility] Address [address], [place] [address] Care Team Providers Care Incident Response Specialist Name Role Phone Alicia Barboza Primary Care Provider [phone] Allergies No Known Allergies Reason For Referral [...] Status Risk Notes Problem Generalized anxiety disorder (16831906) Generalized anxiety disorder (F41.1) Active confirmed Problem Chronic pain (09520752) Other chronic pain (G89.29) Active confirmed Problem Vitamin D deficiency (37695577) Vitamin D deficiency (E55.9) Active confirmed Problem Arthritis (2293243) Arthritis (M19.90) Active confirmed Problem Migraine (87671911) Migraine (G43.909) Active confirmed Problem Asthma (496922626) Asthma (J45.909) Active conf irmed Problem Nausea (231314217) Chronic nause a (R11.0) Active confirmed Problem Schizophrenia (24720332) Schizophrenia (F20.9) Active confirmed Problem Movement disorder (82681433) Movement disorder (G25.9) Active confirmed Problem Gastroesophageal reflux disease (437336545) GERD without esophagitis (K21.9) Active confirmed Problem Tobacco use (030568597) Tobacco use disorder (F17.200) Active confirmed Problem Weight decreased (382579249) Weight loss, non-intentional (R63.4) Active confirmed Plan Of Treatment No Information Insurance Providers Payer Name Payer Address Payer Phone Subscriber Number Group Number Insured Name Patient Relationship to Insured Coverage Start Date Coverage End Date [employer] [address] [place] [phone] [id number] Melissa Nation Self - patient is the insured [employer] [address] [address] [place] [address] [id number] Deanna montiel Melissa Self - patient is the insured [employer] [address] [place] [address] [id number] Melissa Nation Self - patient is the [...]
== END 2025-02-20 12:45 | disposition left against medical advice (07) ==
LOC: ER 20:33 → MEDSURG 23:38
PROVIDERS: Admitting Provider Student in an Organized Health Care Education/Training Program; Emergency Provider Emergency Medicine; PCP Family Medicine; Visit Provider Internal Medicine
DX: K56.600 Partial intestinal obstruction, unspecified as to cause (principal); K85.90 Acute pancreatitis without necrosis or infection, unspecified; R74.01 Elevation of levels of liver transaminase levels; J30.2 Other seasonal allergic rhinitis; Z79.891 Long term (current) use of opiate analgesic; Z53.29 Procedure and treatment not carried out because of patient's decision for other reasons; F17.210 Nicotine dependence, cigarettes, uncomplicated
CPT/HCPCS: 36415; 74177; 80053; 80061; 83605; 83690; 83735; 84100; 85025; 96372; G0378; J1650; J2270; J2405; J2470; J7030; J7120; J9999

== ENCOUNTER → 2025-02-26 11:11 | Outpatient (BNVA) | payer BC, SELFPAY | PROVIDERS: PCP Family Medicine; Visit Provider Family Medicine | DX: Z20.2 Contact with and (suspected) exposure to infections with a predominantly sexual mode of transmission (principal); Z13.6 Encounter for screening for cardiovascular disorders; R74.01 Elevation of levels of liver transaminase levels; K85.80 Other acute pancreatitis without necrosis or infection | CPT/HCPCS: 80053; 80074; 81513; 83690; 85025; 87481; 87491; 87591; 87661; 87806 ==

== ENCOUNTER 2025-03-01 19:00 | Emergency (ER) | payer BC, MEDICAID, SELFPAY ==
[2025-03-01 19:00] VITALS: BP 105/55; PULSE 78; RESP 16; TEMP 37.1; O2SAT 96; BMI 19.9
--- OUTSIDE RECORDS SUMMARY | 2025-03-01 19:09 | XMS_ITS | Patient Health Record ---
Author Organization [facility] Address [address] [place], [place] [id number] Care Team Providers Care Patient Appointment Coordinator Name Role Phone Alicia Barboza Primary Care Provider [phone] Allergies No Known Allergies Reason For Referral [...] Description Sex Assigned At Female Social History DRUGS/ALCOHOL: Social Info Question Answer Notes Alcohol Screen [...] Status Risk Notes Problem Generalized anxiety disorder (95989786) Generalized anxiety disorder (F41.1) Active confirmed Problem Chronic pain (49395635) Other chronic pain (G89.29) Active confirmed Problem Vitamin D deficiency (31790743) Vitamin D deficiency (E55.9) Active confirmed Problem Arthritis (4537734) Arthritis (M19.90) Active confirmed Problem Migraine (16280643) Migraine (G43.909) Active confirmed Problem Asthma (617328369) Asthma (J45.909) Active conf irmed Problem Nausea (855221908) Chronic nause a (R11.0) Active confirmed Problem Schizophrenia (07389139) Schizophrenia (F20.9) Active confirmed Problem Movement disorder (62854393) Movement disorder (G25.9) Active confirmed Problem Gastroesophageal reflux disease (355637932) GERD without esophagitis (K21.9) Active confirmed Problem Tobacco use (386922737) Tobacco use disorder (F17.200) Active confirmed Problem Weight decreased (154687476) Weight loss, non-intentional (R63.4) Active confirmed Plan Of Treatment No Information Insurance Providers Payer Name Payer Address Payer Phone Subscriber Number Group Number Insured Name Patient Relationship to Insured Coverage Start Date Coverage End Date Ambetter [address] [place] [phone] [id number] Melissa Nation Self - patient is the insured [employer] [address] [address] [place] [address] [id number] Deanna montiel Melissa Self - patient is the insured [employer] [address] [place] [address] [phone] [id number] Melissa Nation Self - patient is the [...]
[2025-03-01 19:22] LABS: Hematocrit 39.7 % (36-47); Hemoglobin 13.00 g/dL (11.27-16.99); Mean Corpuscular HGB Conc 32.7 g/dL (30-55); Mean Corpuscular Hemoglobin 32.8 pg (27-33); Mean Corpuscular Volume 100.3 fl (85-98); Nucleated Red Blood Cells % 0 %; Platelet Count 290 10^3/cmm (157-399); Red Blood Count 3.96 10^6/uL (3.85-5.65); White Blood Count 7.27 10^3/uL (3.29-11.43)
--- NOTE | 2025-03-01 19:22 | ED_ITS ---
HPI - Abdominal Pain 2 General: Chief Complaint: Abdominal Pain Stated Complaint: LLQ pain Time Seen by Provider: 03/01/25 19:01 Source: patient Mode of arrival: ambulatory Limitations: no limitations History of Present Illness: Patient is a 49-year-old female presents to ED today via EMS for complaints of right sided abdominal pain. Patient was admitted here at the hospital on 02/19 due to pancreatitis. Lipase at that time was 1000. She did have elevations to her LFTs as well. Patient subsequently was discharged and followed up with primary care 3 days ago. Labs were ran at that time and her lipase was down to 31 and liver enzymes seem to be back down to normal. Patient does feel like she got better after discharge but now the pain is back . She is not having any urinary symptoms. She feels like most of her pain is throughout the right side of her abdomen. She has not had any vomiting. He reports normal bowel movements and passing gas. Vital signs are stable upon arrival. She also has a complaint of chest congestion-somewhat chronic-does smoke daily. No fevers. No chest pain or difficulty breathing. MD elicited complaint: abdominal pain Pertinent past history: other (pancreatitis) Onset (ago): day(s) Pain Consistency: constant Location: RUQ and RLQ Severity: moderate Radiation: none Migration to: no migration Exacerbating factors: nothing Relieving factors: nothing Associated Symptoms: Denies change in bowel habits, chills, diarrhea, dysuria, fever(s), hematuria, syncope and vomiting Related Data Home Medications ?Medication ?Instructions ?Recorded ?Confirmed loperamide 2 mg capsule 2 mg PO Q6H PRN Diarrhea 10/2802/26/25 Previous Rx's ?Medication ?Instructions ?Recorded diphenhydramine HCl 25 mg tablet 25 mg PO .q hs PRN al lergy 02/08/25 symptoms #30 tabs loratadine 10 mg tablet 10 mg PO DAILY PRN allergy 1 symptoms #30 tabs escitalopram oxalate 20 mg tablet 20 mg PO DAILY #30 t abs 02/26/25 hydroxyzine HCl 50 mg tablet 50 mg PO .q hs #30 tabs 1 lamotrigine 25 mg tablet 50 mg (2 x 25 mg) PO QAM sei zures 02/26/25 #60 tabs ondansetron 4 mg disintegrating 4 mg PO Q8H spasms #20 tabs 02/26/25 tablet oxycodone-acetaminophen 5 mg-325 1 tab PO Q8H PRN pain 3 days #9 02/26/25 mg tablet tabs albuterol sulfate 90 mcg/actuation 2 inh inhalation Q4 H PRN shortness 03/01/25 aerosol inhaler of breath or wheezing #6.7 g simon Allergies Allergy/AdvReac Type Severity Reaction Status Date / Time adhesive tape Allergy rash and Verified 02/26/25 10:16 burning cetirizine (From [facility]) Allergy Unknown Verified 03/01/25 19:07 Review of Systems 2 Const: Denies: fever(s), chills, body aches, fatigue or malaise Card: Denies: chest pain, palpitations, irregular heart rhythm, edema, swelling of feet/ankles, lightheadedness, syncope or pre-syncope Resp: Reports: productive cough and chest congestion; Denies: dyspnea GI: Reports: abdominal pain; Denies: vomiting, diarrhea or change in bowel habits : Denies: flank pain, difficulty voiding, dysuria, hematuria, genital pruritis, vaginal odor, vaginal bleeding, vaginal discharge or pelvic pain Musc: Denies: neck pain, back pain, extremity pain, extremity swelling, joint pain or joint swelling Skin/Breast: Denies: rash Neuro: Denies: headache(s), numbness in extremities, weakness in extremities, sensory changes or dizziness PFSH ED 2 PFSH: Medical History Lumbar degenerative disc disease LUIS EDUARDO (generalized anxiety disorder) Moderate episode of recurrent major depressive disorder Seasonal allergies Surgical History History of laparotomy History of bladder surgery History of Eleuterio-en-Y gastric bypass History of classical section History of cholecystectomy Social History Smoking and tobacco/nicotine status: current every day tobacco/nicotine user Alcohol intake: never Substance/Drug Use: never Physical Exam 2 Const: COMMON NORMALS: no acute distress, average body habitus, patient oriented x3, no limitations, healthy appearing, alert and well nourished G ENERAL APPEARANCE: cooperative ORIENTATION/CONSCIOUSNESS: Yes awake, Yes oriented to person, Yes oriented to place and Yes oriented to time HENMT: COMMON NORMALS: normocephalic and atraumatic HEAD & SCALP: n ormocephalic and atraumatic Neck/C-Spine: COMMON NORMALS: full ROM, no lymphadenopathy, supple and no meningeal signs Chest: COMMONS NORMALS: normal inspection of the chest Resp: COMMON NORMALS: normal respiratory effort AUSCULTATION: rhonchi (somewhat improved with coughing-chronic smoker) Cardio: COMMON NORMALS: regular rate and regular rhythm RATE: regular rate RHYTHM: regular rhythm GI: COMMON NORMALS: Normal to inspection, nondistended, normoactive bowel sounds present, Soft to palpation, No hepatosplenomegaly present and no masses INSPECTION: Yes normal to inspection AUSCULTATION: Yes normoactive bowel sounds PALPATION: Yes Soft to palpation, Yes Tenderness to palpation present (GI) (throughout R side of abdomen-non surgical examination), No Guarding due to palpation present (GI), No Rigid due to palpation and Yes No hepatosplenomegaly present : COMMON NORMALS: Yes no CVA tenderness BLADDER/KIDNEY EXAM: Yes no CVA tenderness Back/Pelvis: COMMON NORMALS: no CVA tenderness and thoracic and lumbar spine normal to inspection Extremity: COMMON NORMALS: normal to inspection, no clubbing, cyanosis or edema, no calf tenderness and no pedal edema GENERAL: Yes normal exam except as noted Neuro: ROSENDO COMA SCALE: document GCS findings Rosendo coma scale eye opening: Spontaneous Webster coma scale verbal response: Orientated Rosendo coma scale motor response: Obey commands Rosendo coma scale total score: 15 COMMON NORMALS: patient oriented x3, moves all extremities, no focal motor deficits and no sensory deficits noted SENSORIUM/ORIENTATION: Yes alert, Yes oriented to person, Yes oriented to place and Yes oriented to time MENINGEAL SIGNS: Yes no meningeal signs Skin: COMMON NORMALS: no rashes or lesions noted GENERAL SKIN EXAM: no rashes or lesions noted Course 2 Vital Signs: Vital signs: Vital Signs Temperature 98.7 F 03/01/25 19:00 Pulse Rate 81 03/01/25 21:08 Respiratory Rate 16 03/01/25 21:08 Blood Pressure 105/51 03/01/25 21:08 Pulse Oximetry 96 03/01/25 21:08 Oxygen Delivery Me thod Room Air 03/01/25 20:43 MDM - Abdominal Pain Medical Decision Making Patient is a 49-year-old female here for abdominal pain. Patient was recently hospitalized for diagnosis of pancreatitis. She has followed up with primary care and it looks like labs had normalized at that visit. Her blood work here overall is nonactionable. Hemoglobin is stable. Chemistry showing normal liver enzymes. Normal lipase. Abdomen is nonsurgical. Patient underwent CT imaging on 02/19 and 02/20. I am not CT in her today due to risk of repeated radiation in the setting of a benign physical examination and nonconcerning labs. Somewhat of a concern for drug-seeking behavior as she has asked for pain medication multiple times throughout her visit. Her blood pressure does chronically run soft so she was not given repeated doses of medications that can further lower this. Remainder of her emergency workup was benign. CXR ordered based on her complaint of chest congestion. I feel this is probably related to her smoking. She did request albuterol inhaler so this was to be sent to her pharmacy on file. Patient will be discharged with recommendations to follow-up with her primary care provider. Return ED precautions discussed. Differential Diagnosis Likely abdominal pain, calculus of kidney, constipation, diverticulitis, pancreatitis and small bowel obstruction Medical Records I reviewed the patient's medical records. Lab Data I reviewed the patient's lab results. 03/01/25 19:13 03/01/25 19:13 Labs/Radiology: Radiology Impressions Chest X-Ray 03/01/25 19:27 IMPRESSION: No acute findings. Laboratory Results WBC 7.27 10^3/uL (3.29-11.43) 03/01/25 19:13 RBC 3.96 10^6/uL (3.85-5.65) 03/01/25 19:13 Hgb 13.00 g/dL (11.27-16.99) 03/01/25 19:13 Hct 39.7 % (36-47) 03/01/25 19:13 MCV 100.3 fl (85-98) H 03/01/25 19:13 MCH 32.8 pg (27-33) 03/01/25 19:13 MCHC 32.7 g/dL (30-55) 03/01/25 19:13 RDW 11.9 % (12.1-15.1) L 03/01/25 19:13 Plt Count 290 10^3/cmm (157-399) 03/01/25 19:13 MPV 9.6 fL (7.4-10.4) 03/01/25 19:13 Neut % (Auto) 38.0 % 03/01/25 19:13 Lymph % (Auto) 40.9 % 03/01/25 19:13 Addison % (Auto) 8.8 % 03/01/25 19:13 Eos % (Auto) 10.5 % 03/01/25 19:13 Baso % (Auto) 1.8 % 03/01/25 19:13 Neut # (Auto) 2.77 10^3/uL (1.8-7.7) 03/01/25 19:13 Lymph # (Auto) 3.0 10^3/uL (0.8-4.8) 03/01/25 19:13 Addison # (Auto) 0.6 10^3/uL (0.2-0.9) 03/01/25 19:13 Eos # (Auto) 0.8 10^3/uL (0.0-0.8) 03/01/25 19:13 Baso # (Auto) 0.1 10^3/uL (0.0-0.1) 03/01/25 19:13 Nucleated RBC % (auto) 0 % 03/01/25 19:13 Nucleated RBCs # 0.0 /100WBC 03/01/25 19:13 Sodium 138 mmol/L (136-145) 03/01/25 19:13 Potassium 4.6 mmol/L (3.5-5.1) 03/01/25 19:13 Chloride 104 mmol/L (98-107) 03/01/25 19:13 Carbon Dioxide 26 mmol/L (22-29) 03/01/25 19:13 Anion Gap 12.6 (5-19) 03/01/25 19:13 BUN 11 mg/dL (6-20) 03/01/25 19:13 Creatinine 0.8 mg/dL (0.5-0.9) 03/01/25 19:13 GFR Calculation 75.9 mL/min (90-130) L 03/01/25 19:13 Glucose 80 mg/dL (65-115) 03/01/25 19:13 Calculated Osmolality 284 mOsm/kg (285-295) L 03/01/25 19:13 Calcium 8.6 mg/dL (8.5-10.5) 03/01/25 19:13 Total Bilirubin 0.2 mg/dL (0.15-1.2) 03/01/25 19:13 AST 28 U/L (0-32) 03/01/25 19:13 ALT 42 U/L (0-33) H 03/01/25 19:13 Alkaline Phosphatase 95 U/L (35-105) 03/01/25 19:13 Total Protein 6.3 g/dL (6.6-8.7) L 03/01/25 19:13 Albumin 4.1 g/dL (3.5-5.2) 03/01/25 19:13 Globulin 2.2 g/dL (1.3-4.6) 03/01/25 19:13 Lipase 36 U/L (13-60) 03/01/25 19:13 Urine Color Yellow (Yellow) 03/01/25 20:21 Urine Appearance Clear (CLEAR) 03/01/25 20:21 Urine pH 7.5 (5-7) 03/01/25 20:21 Ur Specific Henderson 1.022 (1.005-1.030) 03/01/25 20:21 Urine Protein Negative (Negative) 03/01/25 20:21 Urine Glucose (UA) Negative (Normal) 03/01/25 20:21 Urine Ketones Negative (Negative) 03/01/25 20:21 Urine Blood Negative (Negative) 03/01/25 20:21 Urine Nitrate Negative (Negative) 03/01/25 20:21 Urine Bilirubin Negative (Negative) 03/01/25 20:21 Urine Urobilinogen 1.0 mg/dL (Negative) 03/01/25 20:21 Ur Leukocyte Esterase Trace (Negative) A 03/01/25 20:21 Urine RBC 0-2 /hpf (0-2) 03/01/25 20:21 Urine WBC 0-5 /hpf (0-5) 03/01/25 20:21 Ur Squamous Epith Cells 0-5 /hpf (0-5) 03/01/25 20:21 Amorphous Sediment Not Reportable 03/01/25 20:21 Urine Bacteria None seen /hpf (NONE) 03/01/25 20:21 Hyaline Casts 0-4 /lpf H 03/01/25 20:21 All radiology interpretation(s) finalized by discharge Discharge Plan Discharge Patient Disposition: Home Clinical Impression: Chest congestion Abdominal pain Qualifiers: Abdominal location: generalized Qualified Code(s): R10.84 - Generalized abdominal pain Condition: Stable Prescriptions: New albuterol sulfate 90 mcg/actuation HFA aerosol inhaler 2 inh INHALATION Q4H PRN (Reason: shortness of breath or wheezing) Qty: 6.7 0RF No Action loperamide 2 mg capsule 2 mg PO Q6H PRN (Reason: Diarrhea) diphenhydramine HCl 25 mg tablet 25 mg PO .q hs PRN (Reason: allergy symptoms) Qty: 30 0RF loratadine 10 mg tablet 10 mg PO DAILY PRN (Reason: allergy symptoms) Qty: 30 0RF escitalopram oxalate 20 mg tablet 20 mg PO DAILY Qty: 30 0RF lamotrigine 25 mg tablet 50 mg PO QAM Qty: 60 0RF hydroxyzine HCl 50 mg tablet 50 mg PO .q hs Qty: 30 0RF ondansetron 4 mg tablet,disintegrating 4 mg PO Q8H Qty: 20 0RF oxycodone-acetaminophen 5-325 mg tablet 1 tab PO Q8H PRN (Reason: pain) 3 Days Qty: 9 0RF Discharge Orders: Discharge ED (Routine); Ordered 03/01/25 Ordered By: Daniella Basilio Referrals: Margoth Koenig DO [Primary Care Provider, [facility]] Patient Instructions: Abdominal Pain (ED), Patient Portal & Silviano Instructions Activity Restrictions/Additional Instructions: As we discussed, please follow-up with primary care later this week/next week for reevaluation. Blood work here was unremarkable. You may return to the emergency department at anytime for any further concerns you may have. Print Language: Pashto Coding Level of Care Code ED Data Network Architect for Amanda Ruiz
--- NOTE | 2025-03-01 19:27 | XRR_ITS ---
PROCEDURE INFORMATION: Exam: XR Chest Exam date and time: 03/01/2025 8:09 PM Age: 49 years old Clinical indication: Cough; Additional info: Chest congestion TECHNIQUE: Imaging protocol: Radiologic exam of the chest. Views: 1 view. COMPARISON: CT abdomen pelvis w con* [id number] 02/19/2025 9:15 PM FINDINGS: Lungs: Unremarkable. No consolidation. Probable hyperinflation, can not exclude emphysema. Pleural spaces: Unremarkable. No pleural effusion. No pneumothorax. Heart/Mediastinum: Unremarkable. No cardiomegaly. Bones/joints: Unremarkable. Organs: Cholecystectomy clips. XR/XR chest 1V portable [id number] IMPRESSION: No acute findings.
[2025-03-01 19:42] VITALS: BP 123/51; O2SAT 96
[2025-03-01 19:54] LABS: Alanine Aminotransferase 42 U/L (0-33); Albumin Level 4.1 g/dL (3.5-5.2); Alkaline Phosphatase 95 U/L (35-105); Anion Gap 12.6 (5-19); Aspartate Amino Transferase 28 U/L (0-32); Blood Urea Nitrogen 11 mg/dL (6-20); Calcium 8.6 mg/dL (8.5-10.5); Carbon Dioxide 26 mmol/L (22-29); Chloride 104 mmol/L (98-107); Creatinine Clr Calc Pharmacy 60.8366; Globulin 2.2 g/dL (1.3-4.6); Glucose 80 mg/dL (65-115); Lipase 36 U/L (13-60); Osmolality Calculated 284 mOsm/kg (285-295); Potassium 4.6 mmol/L (3.5-5.1); Sodium 138 mmol/L (136-145); Total Protein 6.3 g/dL (6.6-8.7)
[2025-03-01 20:03] VITALS: RESP 16; O2SAT 95
[2025-03-01] MEDS: morphine 4 mg/mL SDV 1 mL IVP (20:03)
[2025-03-01] MEDS: ondansetron 2 mg/ML SDV 2 mL 4 MG IVP (20:04)
[2025-03-01 20:06] VITALS: BP 111/63
[2025-03-01 20:28] LABS: Glucose Urine UA Negative (Normal); Nitrate Urine Negative (Negative); Specific Gravity, Urine 1.022 (1.005-1.030)
[2025-03-01 20:32] LABS: Add Urine Microscopic? YES
[2025-03-01 20:43] VITALS: BP 101/57; O2SAT 96
[2025-03-01 21:08] VITALS: BP 105/51; PULSE 81; RESP 16; O2SAT 96
== END 2025-03-01 21:08 | disposition home or self-care (01) ==
PROVIDERS: Emergency Provider Physician Assistant; PCP Family Medicine
DX: R09.89 Other specified symptoms and signs involving the circulatory and respiratory systems (principal); R10.84 Generalized abdominal pain; Z72.0 Tobacco use
CPT/HCPCS: 36415; 71045; 80053; 81001; 83690; 85025; 96374; 96375; 99284; J1885; J2270; J2405

== ENCOUNTER 2025-03-16 10:01 | Outpatient (CLI) | payer BC, MEDICAID, SELFPAY ==
--- NOTE | 2025-03-16 10:08 | XR_ITS ---
WS: [id number] Exam: XR lumbar spine 2-3V* [id number] Date/Time of Exam: 03/16/2025 10:11 AM Reason For Exam: low back pain with sciatica DLP: No fracture or malalignment. Disc spaces are preserved. Posterior elements are intact. Slight spondylosis of L4. XR/XR lumbar spine 2-3V* [id number] IMPRESSION: 1. Negative lumbar spine study.
== END 2025-03-16 10:02 | disposition home or self-care (01) ==
LOC: RAD 10:02
PROVIDERS: PCP Family Medicine; Visit Provider Family Medicine
DX: M54.41 Lumbago with sciatica, right side (principal)
CPT/HCPCS: 72100

== ENCOUNTER 2025-03-19 15:06 | Emergency (ER) | payer BC, MEDICAID, SELFPAY ==
[2025-03-19 14:52] VITALS: BP 107/62; PULSE 78; RESP 17; TEMP 36.8; O2SAT 96; BMI 19.9
--- NOTE | 2025-03-19 15:11 | CTR_ITS ---
PROCEDURE INFORMATION: Exam: CT Lumbar Spine Without Contrast Exam date and time: 03/19/2025 3:37 PM Age: 49 years old Clinical indication: Injury or trauma; Fall; Blunt trauma (contusions or hematomas) TECHNIQUE: Imaging protocol: Computed tomography of the lumbar spine without contrast. Sagittal and coronal reformatted images were also reviewed. Radiation optimization: All CT scans at this facility use at least one of these dose optimization techniques: automated exposure control; mA and/or kV adjustment per patient size (includes targeted exams where dose is matched to clinical indication); or iterative reconstruction. COMPARISON: CR XR lumbar spine 2-3V* [id number] 03/16/2025 10:17 AM RADIATION DOSE METRICS: Total DLP (mGy-cm): 269.27 FINDINGS: Bones/joints: Vertebral body height is maintained. No subluxation. Normal bone mineralization. Mild degenerative changes in the visualized spine. Mild degenerative changes at the right and left sacroiliac joints. No acute fracture. Gallbladder and biliary ducts: Patient has had a previous cholecystectomy. Intraperitoneal space: Surgical sutures in the left upper quadrant of the abdomen. Vasculature: Mild atherosclerotic changes in the visualized arteries. No evidence for aortic aneurysm. Soft tissues: No paravertebral soft tissue abnormality or soft tissue emphysema. No radiopaque foreign body. CT/CT lumbar spine wo con* [id number] IMPRESSION: 1. No acute fracture of the lumbar spine. 2. Incidental/nonacute findings are listed in the report.
--- NOTE | 2025-03-19 15:12 | CTR_ITS ---
PROCEDURE INFORMATION: Exam: CT Head Without Contrast Exam date and time: 03/19/2025 3:34 PM Age: 49 years old Clinical indication: Injury or trauma; Fall; Blunt trauma (contusions or hematomas); Additional info: Closed head injury trauma TECHNIQUE: Imaging protocol: Computed tomography of the head without contrast. Radiation optimization: All CT scans at this facility use at least one of these dose optimization techniques: automated exposure control; mA and/or kV adjustment per patient size (includes targeted exams where dose is matched to clinical indication); or iterative reconstruction. COMPARISON: No relevant prior studies available. RADIATION DOSE METRICS: Total DLP (mGy-cm): 946.28 FINDINGS: Brain: No midline shift. Ventricles, cisterns, and sulci are normal. No mass, acute infarct, hemorrhage, or extraaxial fluid collection. Cerebral ventricles: No ventriculomegaly. Paranasal sinuses: Visualized sinuses are unremarkable. No fluid levels. Mastoid air cells: Visualized mastoid air cells are well aerated. Bones: Unremarkable. No acute fracture. Soft tissues: Unremarkable. CT/CT head wo con* [id number] IMPRESSION: No acute intracranial abnormality.
--- NOTE | 2025-03-19 15:12 | ED_ITS ---
HPI - Seizure 2 General: Chief Complaint: Seizure Stated Complaint: seizures- fall History of Present Illness: HPI Narrative: 49-year-old female presents emergency ro om she has a known history of seizure disorders currently is on Lamictal no recent medication changes or dosage change she had a breakthrough seizure today while she was on a walk she fell at hit her head unknown length of downtime no vomiting since also complaining of low back pain. She denies any injuries to her extremities no shortness of breath no recent fever sweats chills or illness no recent medication changes. Associated symptoms: Deny chest pain, chills or fever(s) Related Data Home Medications ?Medication ?Instructions ?Recorded ?Confirmed loperamide 2 mg capsule 2 mg PO Q6H PRN Diarrhea 10/2803/09/25 Previous Rx's ?Medication ?Instructions ?Recorded diphenhydramine HCl 25 mg tablet 25 mg PO .q hs PRN al lergy 02/08/25 symptoms #30 tabs loratadine 10 mg tablet 10 mg PO DAILY PRN allergy 1 symptoms #30 tabs escitalopram oxalate 20 mg tablet 20 mg PO DAILY #30 t abs 02/26/25 hydroxyzine HCl 50 mg tablet 50 mg PO .q hs #30 tabs 1 lamotrigine 25 mg tablet 50 mg (2 x 25 mg) PO QAM sei zures 02/26/25 #60 tabs ondansetron 4 mg disintegrating 4 mg PO Q8H spasms #20 tabs 02/26/25 tablet albuterol sulfate 90 mcg/actuation 2 inh inhalation Q4 H PRN shortness 03/01/25 aerosol inhaler of breath or wheezing #6.7 g simon cyanocobalamin (vitamin B-12) 1,000 mcg IM DAILY 1 wee k #10 mL 03/09/25 1,000 mcg/mL injection solution metronidazole 500 mg tablet 500 mg PO BID 7 days #14 t abs 03/09/25 prednisone 20 mg tablet 40 mg (2 x 20 mg) PO .am #10 tabs 03/09/25 Allergies Allergy/AdvReac Type Severity Reaction Status Date / Time adhesive tape Allergy rash and Verified 03/09/25 14:01 burning cetirizine (From Zyrtec) Allergy Unknown Verified 03/09/25 14:01 Review of Systems 2 Const: Denies: fever(s) or chills Card: Denies: chest pain Resp: Denies: dyspnea GI: Denies: abdominal pain : Denies: dysuria, urinary frequency or urinary urgency Musc: Reports: back pain (Lumbar); Denies: neck pain Skin/Breast: Denies: rash PFSH ED 2 PFSH: Medical History Psychiatric care Functional neurological symptom disorder with attacks or seizures Lumbar degenerative disc disease LUIS EDUARDO (generalized anxiety disorder) Moderate episode of recurrent major depressive disorder Seasonal allergies Surgical History History of laparotomy History of bladder surgery History of Eleuterio-en-Y gastric bypass History of classical section History of cholecystectomy Social History Smoking and tobacco/nicotine status: current every day tobacco/nicotine user Alcohol intake: never Substance/Drug Use: never Physical Exam 2 Const: GENERAL APPEARANCE: cooperative ORIENTATION/CONSCIOUSNESS: Yes awake, Yes oriented to person, Yes oriented to place and Yes oriented to time HENMT: COMMON NORMALS: normocephalic, atraumatic and hearing grossly normal bilaterally HEAD & SCALP: normocephalic and atraumatic Resp: COMMON NORMALS: normal respiratory effort, No retractions, No use of accessory muscles and clear to auscultation bilaterally AUSCULTATION: clear to auscultation bilaterally Cardio: COMMON NORMALS: regular rate, regular rhythm and No murmurs present (Cardio) RATE: regular rate RHYTHM: regular rhythm GI: COMMON NORMALS: Soft to palpation and No hepatosplenomegaly present A USCULTATION: Yes normoactive bowel sounds PALPATION: Yes Soft to palpation, No Tenderness to palpation present (GI), No Guarding due to palpation present (GI) and Yes No hepatosplenomegaly present Extremity: COMMON NORMALS: normal to inspection, capillary refill normal, no clubbing, cyanosis or edema, no calf tenderness and no pedal edema Neuro: SENSORIUM/ORIENTATION: Yes oriented to person, Yes oriented to place and Yes oriented to time Skin: COMMON NORMALS: no rashes or lesions noted GENERAL SKIN EXAM: no rashes or lesions noted Course 2 Vital Signs: Vital signs: Vital Signs Temperature 98.2 F 03/19/25 14:52 Pulse Rate 79 03/19/25 16:39 Respiratory Rate 17 03/19/25 14:52 Blood Pressure 108/65 03/19/25 16:39 Pulse Oximetry 97 03/19/25 16:39 Oxygen Delivery Me thod Room Air 03/19/25 14:52 MDM - Seizure MDM Narrative Medical decision making narrative: CT head lumbar spine negative. Patient is feeling better. Recommend she follow-up with her primary care doctor reports a breakthrough seizure. Return for further problems. Lab Data 03/19/25 15:22 03/19/25 15:22 Labs: Radiology Impressions Lumbar Spine CT 03/19/25 15:11 IMPRESSION: 1. No acute fracture of the lumbar spine. 2. Incidental/nonacute findings are listed in the report. Head CT 03/19/25 15:12 IMPRESSION: No acute intracranial abnormality. Laboratory Results WBC 7.53 10^3/uL (3.29-11.43) 03/19/25 15:22 RBC 3.78 10^6/uL (3.85-5.65) L 03/19/25 15:22 Hgb 12.50 g/dL (11.27-16.99) 03/19/25 15:22 Hct 37.7 % (36-47) 03/19/25 15:22 MCV 99.7 fl (85-98) H 03/19/25 15:22 MCH 33.1 pg (27-33) H 03/19/25 15:22 MCHC 33.2 g/dL (30-55) 03/19/25 15:22 RDW 12.1 % (12.1-15.1) 03/19/25 15:22 Plt Count 277 10^3/cmm (157-399) 03/19/25 15:22 MPV 8.9 fL (7.4-10.4) 03/19/25 15:22 Neut % (Auto) 44.6 % 03/19/25 15:22 Lymph % (Auto) 35.7 % 03/19/25 15:22 [place] % (Auto) 8.4 % 03/19/25 15:22 Eos % (Auto) 9.8 % 03/19/25 15:22 Baso % (Auto) 1.2 % 03/19/25 15:22 Neut # (Auto) 3.36 10^3/uL (1.8-7.7) 03/19/25 15:22 Lymph # (Auto) 2.7 10^3/uL (0.8-4.8) 03/19/25 15:22 [place] # (Auto) 0.6 10^3/uL (0.2-0.9) 03/19/25 15:22 Eos # (Auto) 0.7 10^3/uL (0.0-0.8) 03/19/25 15:22 Baso # (Auto) 0.1 10^3/uL (0.0-0.1) 03/19/25 15:22 Nucleated RBC % (auto) 0 % 03/19/25 15:22 Nucleated RBCs # 0.0 /100WBC 03/19/25 15:22 Sodium 139 mmol/L (136-145) 03/19/25 15:22 Potassium 4.1 mmol/L (3.5-5.1) 03/19/25 15:22 Chloride 107 mmol/L (98-107) 03/19/25 15:22 Carbon Dioxide 23 mmol/L (22-29) 03/19/25 15:22 Anion Gap 13.1 (5-19) 03/19/25 15:22 BUN 16 mg/dL (6-20) 03/19/25 15:22 Creatinine 0.6 mg/dL (0.5-0.9) 03/19/25 15:22 GFR Calculation 105.8 mL/min (90-130) 03/19/25 15:22 Glucose 96 mg/dL (65-115) 03/19/25 15:22 Calculated Osmolality 289 mOsm/kg (285-295) 03/19/25 15:22 Calcium 8.5 mg/dL (8.5-10.5) 03/19/25 15:22 Magnesium 2.2 mg/dL (1.7-2.3) 03/19/25 15:22 Total Bilirubin 0.2 mg/dL (0.15-1.2) 03/19/25 15:22 AST 24 U/L (0-32) 03/19/25 15:22 ALT 29 U/L (0-33) 03/19/25 15:22 Alkaline Phosphatase 65 U/L (35-105) 03/19/25 15:22 Total Protein 5.8 g/dL (6.6-8.7) L 03/19/25 15:22 Albumin 4.1 g/dL (3.5-5.2) 03/19/25 15:22 Globulin 1.7 g/dL (1.3-4.6) 03/19/25 15:22 All radiology interpretation(s) finalized by discharge Discharge Plan Discharge Patient Disposition: Home Clinical Impression: Generalized seizure, Fall Condition: Stable Prescriptions: No Action loperamide 2 mg capsule 2 mg PO Q6H PRN (Reason: Diarrhea) diphenhydramine HCl 25 mg tablet 25 mg PO .q hs PRN (Reason: allergy symptoms) Qty: 30 0RF loratadine 10 mg tablet 10 mg PO DAILY PRN (Reason: allergy symptoms) Qty: 30 0RF escitalopram oxalate 20 mg tablet 20 mg PO DAILY Qty: 30 0RF lamotrigine 25 mg tablet 50 mg PO QAM Qty: 60 0RF hydroxyzine HCl 50 mg tablet 50 mg PO .q hs Qty: 30 0RF ondansetron 4 mg tablet,disintegrating 4 mg PO Q8H Qty: 20 0RF cyanocobalamin (vitamin B-12) 1,000 mcg/mL solution 1,000 mcg IM DAILY 7 Days Qty: 10 0RF Rx Instructions: 1,000mcg daily x 1 week, then weekly x 8 weeks. metronidazole 500 mg tablet 500 mg PO BID 7 Days Qty: 14 0RF prednisone 20 mg tablet 40 mg PO .am Qty: 10 0RF Rx Instructions: Take in the AM with food albuterol sulfate 90 mcg/actuation HFA aerosol inhaler 2 inh INHALATION Q4H PRN (Reason: shortness of breath or wheezing) Qty: 6.7 0RF Discharge Orders: Discharge ED (Routine); Ordered 03/19/25 Ordered By: Landen Dickson Referrals: Margoth Koenig DO [Primary Care Provider, Family Practice] Discharge Diet: Usual diet Discharge Activity: Resume usual activity Patient Instructions: Opioid Safety, Pain Management, Patient Portal & Silviano Instructions Activity Restrictions/Additional Instructions: Thank you for choosing [facility] for your healthcare needs today. It is very important that you follow up as instructed or that you return to the Emergency Department should you have concerns or if your condition changes or worsens in any way. Emergency department visits are focused on emergent conditions, in some cases you may require further evaluation on an outpatient basis. You were seen in the emergency room after a breakthrough seizure. Will discharge you home recommend continuing your current medications follow-up with your neurologist as soon as you are able to advise them that you had the episode of breakthrough seizure. (Please note that included in your discharge packet is information concerning opioid safety and pain management. This information is given to all patients were discharged from the ER regardless of their discharge diagnosis or the medicines they usually take or are prescribed.) Print Language: Georgian Coding Level of Care Code ED Bridal Sales Consultant for Amanda Ruiz
[2025-03-19 15:29] LABS: Hematocrit 37.7 % (36-47); Hemoglobin 12.50 g/dL (11.27-16.99); Mean Corpuscular HGB Conc 33.2 g/dL (30-55); Mean Corpuscular Hemoglobin 33.1 pg (27-33); Mean Corpuscular Volume 99.7 fl (85-98); Nucleated Red Blood Cells % 0 %; Platelet Count 277 10^3/cmm (157-399); Red Blood Count 3.78 10^6/uL (3.85-5.65); White Blood Count 7.53 10^3/uL (3.29-11.43)
[2025-03-19 15:54] LABS: Alanine Aminotransferase 29 U/L (0-33); Albumin Level 4.1 g/dL (3.5-5.2); Alkaline Phosphatase 65 U/L (35-105); Anion Gap 13.1 (5-19); Aspartate Amino Transferase 24 U/L (0-32); Blood Urea Nitrogen 16 mg/dL (6-20); Calcium 8.5 mg/dL (8.5-10.5); Carbon Dioxide 23 mmol/L (22-29); Chloride 107 mmol/L (98-107); Creatinine Clr Calc Pharmacy 81.1155; Globulin 1.7 g/dL (1.3-4.6); Glucose 96 mg/dL (65-115); Magnesium 2.2 mg/dL (1.7-2.3); Osmolality Calculated 289 mOsm/kg (285-295); Potassium 4.1 mmol/L (3.5-5.1); Sodium 139 mmol/L (136-145); Total Protein 5.8 g/dL (6.6-8.7)
[2025-03-19 16:39] VITALS: BP 108/65; PULSE 79; O2SAT 97
--- OUTSIDE RECORDS SUMMARY | 2025-03-19 16:57 | XMS_ITS | Patient Health Record ---
Author Organization [facility] Address [address], [place] [id number] Care Team Providers Care Manager Health Name Role Phone Alicia Barboza Primary Care [...] Status Risk Notes Problem Generalized anxiety disorder (25004533) Generalized anxiety disorder (F41.1) Active confirmed Problem Chronic pain (91386805) Other chronic pain (G89.29) Active confirmed Problem Vitamin D deficiency (16557515) Vitamin D deficiency (E55.9) Active confirmed Problem Arthritis (5447677) Arthritis (M19.90) Active confirmed Problem Migraine (96631698) Migraine (G43.909) Active confirmed Problem Asthma (691596323) Asthma (J45.909) Active conf irmed Problem Nausea (073436691) Chronic nause a (R11.0) Active confirmed Problem Schizophrenia (82210541) Schizophrenia (F20.9) Active confirmed Problem Movement disorder (06334124) Movement disorder (G25.9) Active confirmed Problem Gastroesophageal reflux disease (041740676) GERD without esophagitis (K21.9) Active confirmed Problem Tobacco use (398584050) Tobacco use disorder (F17.200) Active confirmed Problem Weight decreased (732344796) Weight loss, non-intentional (R63.4) Active confirmed Plan Of Treatment No Information Insurance Providers Payer Name Payer Address Payer Phone Subscriber Number Group Number Insured Name Patient Relationship to Insured Coverage Start Date Coverage End Date [employer] [address] [place] [phone] [id number] Melissa Nation Self - patient is the insured [employer] [address] [address] [place] [address] [phone] [id number] Deanna montiel Melissa Self - patient is the insured [employer] [address] [place] [address] [phone] [id number] Melissa Nation Self - patient is the [...]
== END 2025-03-19 16:43 | disposition home or self-care (01) ==
PROVIDERS: Emergency Provider Family Medicine; PCP Family Medicine
DX: G40.409 Other generalized epilepsy and epileptic syndromes, not intractable, without status epilepticus (principal); Z72.0 Tobacco use
CPT/HCPCS: 36415; 70450; 72131; 80053; 83735; 85025; 96374; 99285; J1885

== ENCOUNTER 2025-03-30 20:17 | Emergency (ER) | payer BC, MEDICAID, SELFPAY ==
--- OUTSIDE RECORDS SUMMARY | 2024-12-16 03:00 | XMS_ITS ---
Author Organization [facility] Address [address] [place] [address] Care Team Providers Care Red Mud Thickener Operator Name Role Phone Nidia White Unavailable [phone] REASON FOR VISIT est care Encounters Encounter Location Date Provider Diagnosis [facility] [address] [place] [address] 12/16/2024 Nidia White Plan Of Treatment No Information Progress Notes * Melissa LYNNDOB:1974 (49 yo F)Acc No.[id number]:12/16/2024 Progress Notes Patient: Melissa Morrison Provider: MIKE Mcmillan :1975 A ge:49 Y S ex:Female Date:12/16/2024 Address[place] [id number] Subjective: * Chief Complaints: * E st care * Electronic signature of MIKE Garcia on 03/30/2025 at 08:22 PM MEDIA EXECUTIVE Sign off status: Pending * Provider: MIKE Mcmillan Date: 0 12/16/2024 Generated for [facility] ng/Boni/eTransmitting on: 1 05/30/2024 08:22 PM MEDIA EXECUTIVE
--- OUTSIDE RECORDS SUMMARY | 2024-12-18 03:00 | XMS_ITS ---
Author Organization [facility] Address [address] [facility] [address] Care Team Providers Care Schedule Manager Name Role Phone Misty Crowley [phone] REASON FOR VISIT est care Encounters Encounter Location Date Provider Diagnosis 18th [facility] [address] [place] [address] 12/18/2024 Misty Crowley Plan Of Treatment No Information Progress Notes * Melissa LYNNDOB:1974 (49 yo F)Acc No.[id number]:12/18/2024 Progress Notes Patient: Melissa Morrison Provider: Jefferson Crowley Nurse Practitioner :1975 A ge:49 Y S ex:Female Date:12/18/2024 Address:[place] [id number] Subjective: * Chief Complaints: * E st care * Electronic signature of MOLLY Hussein on 03/30/2025 at 08:22 PM GREENHOUSE TECHNICIAN Sign off status: Pending * Provider: Jefferson Crowley Nurse Practitioner Date: 0 12/18/2024 Generated for Printing/Faxing/eTransmitting on: 1 05/30/2024 08:22 PM GREENHOUSE TECHNICIAN
--- OUTSIDE RECORDS SUMMARY | 2025-03-30 20:22 | XMS_ITS | Patient Health Record ---
Author Organization [facility] Address [address] [place] [address] Care Team Providers Care Account Solutions Analyst Name Role Phone Misty Crowley Unavailable [phone] Nidia White Unavailable [phone] Reason For Referral No Information Plan Of Treatment No Information
--- OUTSIDE RECORDS SUMMARY | 2025-03-30 20:22 | XMS_ITS | Patient Health Record ---
Author Organization [facility] Address [address], [place] [id number] Care Team Providers Care Reconciliation Clerk Name Role Phone Alicia Barboza Primary Care Provider [phone] Allergies No Known Allergies Reason For Referral [...] Status Risk Notes Problem Generalized anxiety disorder (48102831) Generalized anxiety disorder (F41.1) Active confirmed Problem Chronic pain (70890315) Other chronic pain (G89.29) Active confirmed Problem Vitamin D deficiency (37830334) Vitamin D deficiency (E55.9) Active confirmed Problem Arthritis (3225517) Arthritis (M19.90) Active confirmed Problem Migraine (27319125) Migraine (G43.909) Active confirmed Problem Asthma (525568781) Asthma (J45.909) Active conf irmed Problem Nausea (621776967) Chronic nause a (R11.0) Active confirmed Problem Schizophrenia (92078163) Schizophrenia (F20.9) Active confirmed Problem Movement disorder (87020848) Movement disorder (G25.9) Active confirmed Problem Gastroesophageal reflux disease (311038989) GERD without esophagitis (K21.9) Active confirmed Problem Tobacco use (128386270) Tobacco use disorder (F17.200) Active confirmed Problem Weight decreased (142385305) Weight loss, non-intentional (R63.4) Active confirmed Plan Of Treatment No Information Insurance Providers Payer Name Payer Address Payer Phone Subscriber Number Group Number Insured Name Patient Relationship to Insured Coverage Start Date Coverage End Date Ambetter [address] [place] [phone] [id number] Melissa Nation Self - patient is the insured [employer] [address] [address] [place] [address] [phone] [id number] Deanna montiel Melissa Self - patient is the insured [employer] [address] [place] [address] [phone] [id number] Melissa Nation Self - patient is the [...]
[2025-03-30 20:27] VITALS: PULSE 60; RESP 14; TEMP 36.4; BMI 20.7
[2025-03-30 20:38] VITALS: PULSE 60; RESP 14; TEMP 36.4
[2025-03-30 20:57] LABS: Hematocrit 38.2 % (36-47); Hemoglobin 12.80 g/dL (11.27-16.99); Mean Corpuscular HGB Conc 33.5 g/dL (30-55); Mean Corpuscular Hemoglobin 33.5 pg (27-33); Mean Corpuscular Volume 100.0 fl (85-98); Nucleated Red Blood Cells % 0 %; Platelet Count 260 10^3/cmm (157-399); Red Blood Count 3.82 10^6/uL (3.85-5.65); White Blood Count 6.10 10^3/uL (3.29-11.43)
--- NOTE | 2025-03-30 21:06 | ED_ITS ---
HPI - Seizure 2 General: Chief Complaint: Seizure Stated Complaint: possible seizure Time Seen by Provider: 03/30/25 20:28 History of Present Illness: HPI Narrative: 49-year-old female presents emergency ro om with report of a seizure. She was going to her room one of the local shelters and began to have a seizure. She on arrival here she is postictal and mildly confused. She does recognize that she has had seizures in the past that she has had recent breakthrough seizures earlier this month as well as today. She has been off of her seizure medication for the last week because she was not able to get them filled. Seizure History: Yes Place: Home Associated symptoms: Deny chest pain, chills or fever(s) Related Data Home Medications ?Medication ?Instructions ?Recorded ?Confirmed loperamide 2 mg capsule 2 mg PO Q6H PRN Diarrhea 10/2803/25/25 Previous Rx's ?Medication ?Instructions ?Recorded diphenhydramine HCl 25 mg tablet 25 mg PO .q hs PRN al lergy 02/08/25 symptoms #30 tabs loratadine 10 mg tablet 10 mg PO DAILY PRN allergy 1 symptoms #30 tabs escitalopram oxalate 20 mg tablet 20 mg PO DAILY #30 t abs 02/26/25 lamotrigine 25 mg tablet 50 mg (2 x 25 mg) PO QAM sei zures 02/26/25 #60 tabs ondansetron 4 mg disintegrating 4 mg PO Q8H spasms #20 tabs 02/26/25 tablet albuterol sulfate 90 mcg/actuation 2 inh inhalation Q4 H PRN shortness 03/01/25 aerosol inhaler of breath or wheezing #6.7 g simon cyanocobalamin (vitamin B-12) 1,000 mcg IM DAILY 1 wee k #10 mL 03/09/25 1,000 mcg/mL injection solution metronidazole 500 mg tablet 500 mg PO BID 7 days #14 t abs 03/09/25 prednisone 20 mg tablet 40 mg (2 x 20 mg) PO .am #10 tabs 03/09/25 trazodone 100 mg tablet 100 mg PO .po q hs #30 tabs 03/25/25 lamotrigine 25 mg tablet 50 mg (2 x 25 mg) PO DAILY 3 0 days 03/30/25 #60 tabs Allergies Allergy/AdvReac Type Severity Reaction Status Date / Time adhesive tape Allergy rash and Verified 03/25/25 09:48 burning cetirizine (From [facility]) Allergy Unknown Verified 03/25/25 09:48 Review of Systems 2 Const: Denies: fever(s) or chills Card: Denies: chest pain Resp: Denies: dyspnea GI: Denies: abdominal pain : Denies: dysuria, urinary frequency or urinary urgency Musc: Denies: neck pain or back pain Skin/Breast: Denies: rash PFSH ED 2 PFSH: Medical History Psychiatric care Functional neurological symptom disorder with attacks or seizures Lumbar degenerative disc disease LUIS EDUARDO (generalized anxiety disorder) Moderate episode of recurrent major depressive disorder Seasonal allergies Surgical History History of laparotomy History of bladder surgery History of Eleuterio-en-Y gastric bypass History of classical section History of cholecystectomy Social History Smoking and tobacco/nicotine status: current every day tobacco/nicotine user Alcohol intake: never Substance/Drug Use: never Physical Exam 2 Const: GENERAL APPEARANCE: cooperative ORIENTATION/CONSCIOUSNESS: Yes awake, Yes oriented to person, Yes oriented to place and Yes oriented to time HENMT: COMMON NORMALS: normocephalic, atraumatic and hearing grossly normal bilaterally HEAD & SCALP: normocephalic and atraumatic Resp: COMMON NORMALS: normal respiratory effort, No retractions, No use of accessory muscles and clear to auscultation bilaterally AUSCULTATION: clear to auscultation bilaterally Cardio: COMMON NORMALS: regular rate, regular rhythm and No murmurs present (Cardio) RATE: regular rate RHYTHM: regular rhythm GI: COMMON NORMALS: Soft to palpation and No hepatosplenomegaly present A USCULTATION: Yes normoactive bowel sounds PALPATION: Yes Soft to palpation, No Tenderness to palpation present (GI), No Guarding due to palpation present (GI) and Yes No hepatosplenomegaly present Extremity: COMMON NORMALS: normal to inspection, capillary refill normal, no clubbing, cyanosis or edema, no calf tenderness and no pedal edema Neuro: SENSORIUM/ORIENTATION: Yes oriented to person, Yes oriented to place and Yes oriented to time Skin: COMMON NORMALS: no rashes or lesions noted GENERAL SKIN EXAM: no rashes or lesions noted Course 2 Vital Signs: Vital signs: Vital Signs Temperature 97.6 F 03/30/25 20:38 Pulse Rate 60 03/30/25 20:38 Respiratory Rate 14 03/30/25 20:38 MDM - Seizure MDM Narrative Medical decision making narrative: Medical decision making Social determinants: Patient living in a homeless retirement has difficulty securing her prescription medications in the process of changing different primary care physician I reviewed the patient's medical record. I reviewed the patient's current home meds Alternate historians: None Differential diagnosis: Breakthrough seizures Lab Review: Labs reviewed as found in the chart no clinically significant abnormalities Imaging: No imaging Assessment of risk: Level of risk: Moderate Hospitalization considerations: None Reexamination: Repeat exam postictal phase is passed patient awake alert and oriented Assessment and plan: Breakthrough seizure due to being off her medications. Patient was given dose of lamotrigine p.o. here and then discharged home with prescription. Encouraged follow-up with her primary care doctor to refill her other medications. Encouraged her to take her medications regularly and avoid stimulants Lab Data 03/30/25 20:45 03/30/25 20:45 Labs: Laboratory Results WBC 6.10 10^3/uL (3.29-11.43) 03/30/25 20:45 RBC 3.82 10^6/uL (3.85-5.65) L 03/30/25 20:45 Hgb 12.80 g/dL (11.27-16.99) 03/30/25 20:45 Hct 38.2 % (36-47) 03/30/25 20:45 MCV 100.0 fl (85-98) H 03/30/25 20:45 MCH 33.5 pg (27-33) H 03/30/25 20:45 MCHC 33.5 g/dL (30-55) 03/30/25 20:45 RDW 11.8 % (12.1-15.1) L 03/30/25 20:45 Plt Count 260 10^3/cmm (157-399) 03/30/25 20:45 MPV 9.6 fL (7.4-10.4) 03/30/25 20:45 Neut % (Auto) 36.0 % 03/30/25 20:45 Lymph % (Auto) 46.9 % 03/30/25 20:45 Moffat % (Auto) 8.9 % 03/30/25 20:45 Eos % (Auto) 6.7 % 03/30/25 20:45 Baso % (Auto) 1.5 % 03/30/25 20:45 Neut # (Auto) 2.20 10^3/uL (1.8-7.7) 03/30/25 20:45 Lymph # (Auto) 2.9 10^3/uL (0.8-4.8) 03/30/25 20:45 Moffat # (Auto) 0.5 10^3/uL (0.2-0.9) 03/30/25 20:45 Eos # (Auto) 0.4 10^3/uL (0.0-0.8) 03/30/25 20:45 Baso # (Auto) 0.1 10^3/uL (0.0-0.1) 03/30/25 20:45 Nucleated RBC % (auto) 0 % 03/30/25 20:45 Nucleated RBCs # 0.0 /100WBC 03/30/25 20:45 Sodium 140 mmol/L (136-145) 03/30/25 20:45 Potassium 4.1 mmol/L (3.5-5.1) 03/30/25 20:45 Chloride 108 mmol/L (98-107) H 03/30/25 20:45 Carbon Dioxide 24 mmol/L (22-29) 03/30/25 20:45 Anion Gap 12.1 (5-19) 03/30/25 20:45 BUN 14 mg/dL (6-20) 03/30/25 20:45 Creatinine 0.6 mg/dL (0.5-0.9) 03/30/25 20:45 GFR Calculation 105.8 mL/min (90-130) 03/30/25 20:45 Glucose 90 mg/dL (65-115) 03/30/25 20:45 Calculated Osmolality 290 mOsm/kg (285-295) 03/30/25 20:45 Calcium 8.7 mg/dL (8.5-10.5) 03/30/25 20:45 Total Bilirubin 0.2 mg/dL (0.15-1.2) 03/30/25 20:45 AST 22 U/L (0-32) 03/30/25 20:45 ALT 22 U/L (0-33) 03/30/25 20:45 Alkaline Phosphatase 66 U/L (35-105) 03/30/25 20:45 Total Protein 6.4 g/dL (6.6-8.7) L 03/30/25 20:45 Albumin 4.1 g/dL (3.5-5.2) 03/30/25 20:45 Globulin 2.3 g/dL (1.3-4.6) 03/30/25 20:45 No radiology studies performed this visit Discharge Plan Discharge Patient Disposition: Home Clinical Impression: Generalized seizure Condition: Stable Prescriptions: New lamotrigine 25 mg tablet 50 mg PO DAILY 30 Days Qty: 60 0RF No Action trazodone 100 mg tablet 100 mg PO .po q hs Qty: 30 0RF loperamide 2 mg capsule 2 mg PO Q6H PRN (Reason: Diarrhea) diphenhydramine HCl 25 mg tablet 25 mg PO .q hs PRN (Reason: allergy symptoms) Qty: 30 0RF loratadine 10 mg tablet 10 mg PO DAILY PRN (Reason: allergy symptoms) Qty: 30 0RF escitalopram oxalate 20 mg tablet 20 mg PO DAILY Qty: 30 0RF lamotrigine 25 mg tablet 50 mg PO QAM Qty: 60 0RF ondansetron 4 mg tablet,disintegrating 4 mg PO Q8H Qty: 20 0RF cyanocobalamin (vitamin B-12) 1,000 mcg/mL solution 1,000 mcg IM DAILY 7 Days Qty: 10 0RF Rx Instructions: 1,000mcg daily x 1 week, then weekly x 8 weeks. metronidazole 500 mg tablet 500 mg PO BID 7 Days Qty: 14 0RF prednisone 20 mg tablet 40 mg PO .am Qty: 10 0RF Rx Instructions: Take in the AM with food albuterol sulfate 90 mcg/actuation HFA aerosol inhaler 2 inh INHALATION Q4H PRN (Reason: shortness of breath or wheezing) Qty: 6.7 0RF Discharge Orders: Discharge ED (Routine); Ordered 03/30/25 Ordered By: Landen Dickson Referrals: Margoth Koenig DO [Primary Care Provider, Family Practice] Discharge Diet: Usual diet Discharge Activity: Increase activity as tolerated Patient Instructions: Opioid Safety, Pain Management, Patient Portal & Silviano Instructions Activity Restrictions/Additional Instructions: Thank you for choosing [facility] for your healthcare needs today. It is very important that you follow up as instructed or that you return to the Emergency Department should you have concerns or if your condition changes or worsens in any way. Emergency department visits are focused on emergent conditions, in some cases you may require further evaluation on an outpatient basis. You were seen in the emergency room after a seizure. You have stated you have been out of your medications for the last week. You are given a dose of your antiseizure medicine here and we gave you prescription for your antiseizure medicine for at home. You should follow-up with your doctor as soon as you are able to (Please note that included in your discharge packet is information concerning opioid safety and pain management. This information is given to all patients were discharged from the ER regardless of their discharge diagnosis or the medicines they usually take or are prescribed.) Print Language: Amharic Coding Level of Care Code ED [employer] for Amanda Ruiz
[2025-03-30 21:19] LABS: Alanine Aminotransferase 22 U/L (0-33); Albumin Level 4.1 g/dL (3.5-5.2); Alkaline Phosphatase 66 U/L (35-105); Anion Gap 12.1 (5-19); Aspartate Amino Transferase 22 U/L (0-32); Blood Urea Nitrogen 14 mg/dL (6-20); Calcium 8.7 mg/dL (8.5-10.5); Carbon Dioxide 24 mmol/L (22-29); Chloride 108 mmol/L (98-107); Globulin 2.3 g/dL (1.3-4.6); Glucose 90 mg/dL (65-115); Osmolality Calculated 290 mOsm/kg (285-295); Potassium 4.1 mmol/L (3.5-5.1); Sodium 140 mmol/L (136-145); Total Protein 6.4 g/dL (6.6-8.7)
[2025-03-30 23:01] VITALS: BP 96/54; PULSE 60; O2SAT 98
== END 2025-03-30 23:02 | disposition home or self-care (01) ==
PROVIDERS: Emergency Provider Family Medicine; PCP Family Medicine
DX: G40.409 Other generalized epilepsy and epileptic syndromes, not intractable, without status epilepticus (principal); Z72.0 Tobacco use
CPT/HCPCS: 36415; 80053; 85025; 96361; 96374; 99284; J1885; J7030; J9999